=== PATIENT | female | born 1945 | race Caucasian/White ===

== ENCOUNTER 2017-11-17 09:29 | Inpatient (IN) | payer OTHER ==
[~2017-11-17] VITALS: Ht 162.6 cm; Wt 65.8 kg
--- NOTE | 2017-11-17 09:30 | NUR ---
BIB RA 61 FROM HOME,GENERALIZED WEAKNESS,BLOOD SUGAR HGIH AND HH=111/100. PT AAOX3. MD AT FOR EVAL. SAFETY AND COMFORT MEASURES PROVIDED. WILL MONITOR.
--- NOTE | 2017-11-17 09:57 | NUR ---
IV ACCESS STARTED. BLOOD AND CULTURES DRAWN FOR LABS. MEDICATED ORDERED. PT UNABLE TO GIVE URINE SAMPLE AT THIS TIME.
[2017-11-17 09:59] LABS: BASOPHILS # (AUTO) 0.4 /CMM (0.0-0.2); BASOPHILS % (AUTO) 3.8 % (0.0-2.0); EOSINOPHILS % (AUTO) 0.1 % (0.0-6.0); HEMATOCRIT 41 % (33-45); HEMOGLOBIN 13.9 g/dL (11.5-14.8); LYMPHOCYTES # (AUTO) 0.7 /CMM (0.8-4.8); LYMPHOCYTES % (AUTO) 6.4 % (20.0-44.0); MEAN CORPUSCULAR HEMOGLOBIN 30 PG (26.0-33.0); MEAN CORPUSCULAR HGB CONC 34 g/dl (31.0-36.0); MEAN CORPUSCULAR VOLUME 87 fL (82-100); MONOCYTES # (AUTO) 0.8 /CMM (0.1-1.30); MONOCYTES % (AUTO) 7.6 % (2.0-12.0); NEUTROPHILS # (AUTO) 8.4 /CMM (1.8-8.9); NEUTROPHILS % (AUTO) 82.1 % (43.0-81.0); PLATELET COUNT (AUTO) 207 /CMM (150-450); RDW COEFFICIENT OF VARIATION 12.6 (11.5-15.0); WHITE BLOOD COUNT (AUTO) 10.3 K/uL (4.3-11.0)
[2017-11-17] MEDS ORDERED: IV NS 0.9% 1,000 ML BAG IV ONE ×2 (10:00→10:30)
[2017-11-17 10:11] LABS: INR 0.87 (0.85-1.15)
--- NOTE | 2017-11-17 10:14 | NUR ---
LENNOX AT BS.
[2017-11-17 10:20] LABS: TROPONIN I < 0.017 ng/mL (0.00-0.056)
[2017-11-17 10:24] LABS: ALANINE AMINOTRANSFERASE 14 U/L (12-78); ALBUMIN 3.4 g/dL (3.4-5.0); ALKALINE PHOSPHATASE 101 U/L (46-116); ASPARTATE AMINOTRANSFERASE 10 U/L (15-37); BILIRUBIN,DIRECT 0.2 mg/dL (0.0-0.2); BILIRUBIN,TOTAL 0.9 mg/dL (0.2-1.0); CALCIUM, SERUM 9.7 mg/dL (8.5-10.1); CARBON DIOXIDE 22 mmol/L (21-32); CHLORIDE 96 mmol/L (98-107); CREATININE 2.1 mg/dL (0.6-1.3); POTASSIUM 4.7 mmol/L (3.5-5.1); SODIUM SERUM 136 mmol/L (136-145); UREA NITROGEN, BLOOD 64 mg/dL (7-18)
[2017-11-17 10:26] LABS: GLUCOSE 533 mg/dL (74-106)
[2017-11-17] MEDS ORDERED: INSULIN REGULAR, HUMAN 100 UNIT/ML 10 ML VIAL SQ ONE (10:30)
--- NOTE | 2017-11-17 10:37 | NUR ---
SMILEY ALLAN PAGED FOR ADMISSION
[2017-11-17] MEDS ORDERED: INSULIN REGULAR, HUMAN 100 UNIT/ML 10 ML VIAL ONE (10:39)
--- NOTE | 2017-11-17 10:40 | NUR ---
URINE SAMPLE OBTAINED, PT NOTED SOILED, CLEANED. KEPT COMFORTABLE.
[2017-11-17] MEDS ORDERED: HYDR25TA4 PO (10:41)
[2017-11-17] MEDS ORDERED: LOSA25TA13 PO (10:41)
[2017-11-17] MEDS ORDERED: INSU100V7 SQ (10:41)
[2017-11-17] MEDS ORDERED: OMEP40CA37 PO (10:41)
[2017-11-17] MEDS ORDERED: AMLO10TA2 PO (10:41)
[2017-11-17] MEDS ORDERED: BLOO-668 IN (10:41)
[2017-11-17] MEDS ORDERED: ATOR10TA PO (10:41)
[2017-11-17] MEDS ORDERED: INSU100V11 SQ (10:41)
[2017-11-17 10:52] LABS: APPEARANCE,URINE Slightly Cloudy (CLEAR); BILIRUBIN,URINE Negative (NEGATIVE); BLOOD, URINE Moderate Ery/uL (NEGATIVE); COLOR,URINE Yellow (YELLOW); KETONES,URINE 40 (NEGATIVE); LEUKOCYTE ESTERASE ,URINE Negative (NEGATIVE); NITRITE, URINE Negative (NEGATIVE); PROTEIN,URINE >=300 mg/dl (NEGATIVE); UGLUCOSE 500 MG/DL mg/dL (NEGATIVE); UROBILINOGEN,URINE 0.2 EU/dL (0.2)
--- NOTE | 2017-11-17 10:55 | NUR ---
PANEL ON-CALL PAGED
[2017-11-17 11:15] LABS: BACTERIA,URINE Few /HPF (None Seen); URINE AMORPHOUS URATE Few /HPF (None Seen)
[2017-11-17] MEDS ORDERED: IV NS 0.9% 1,000 ML IV PRN (11:29)
[2017-11-17] MEDS ORDERED: HYDROCODONE/APAP 5/325MG 1 EACH TABLET PO PRN (11:30)
[2017-11-17] MEDS ORDERED: DEXTROSE 50%-WATER 50 ML DISP.SYRIN IV PRN (11:30)
[2017-11-17] MEDS ORDERED: *INSULIN REGULAR(HUMULIN R)HUM 100 UNIT/ML VIAL SQ PRN (11:30)
[2017-11-17] MEDS ORDERED: Z GUARD REMEDY 2 OZ OINT TP PRN (11:30)
[2017-11-17] MEDS ORDERED: MAG HYDROX/AL HYDROX/SIMETH 30 ML UDC PO PRN (11:30)
[2017-11-17] MEDS ORDERED: ONDANSETRON HCL/PF 4 MG/2 ML VIAL IVP PRN (11:30)
[2017-11-17] MEDS ORDERED: HYDROCODONE/APAP 10/325MG 1 EA TABLET PO PRN (11:30)
[2017-11-17] MEDS ORDERED: MAGNESIUM HYDROXIDE 30 ML UDC PO PRN (11:30)
[2017-11-17] MEDS ORDERED: ACETAMINOPHEN 325 MG TABLET PO PRN (11:30)
--- NOTE | 2017-11-17 11:41 | NUR ---
CALLED DR LEE, ON THE PHONE WITH DR FERNANDES.
--- NOTE | 2017-11-17 11:51 | NUR ---
CALLED NURSING SUP REQUESTING A BED.
--- NOTE | 2017-11-17 12:05 | NUR ---
PT TAKEN TO CT.
--- NOTE | 2017-11-17 14:01 | NUR ---
REPORT GIVEN TO TUNG COX FOR TELE 104.
[2017-11-17 14:30] VITALS: BP 187/90
--- NOTE | 2017-11-17 14:30 | NUR ---
RN INITIAL NOTE PATIENT ARRIVED FROM EMERGENCY ROOM FOR WEAKNESS AND LEFT ANKLE FRACTURE. PATIENT BROUGHT IN BED, ASSISTED BY NURSE IN BED, RESTING COMFORTABLY, INSTRUCTED MACHINE CLOTH MEASURER LIGHT USE AND SAFETY UPON ARRIVAL. BLOOD PRESSURE IS ELEVATED CALL TO PROVIDER FOR FURTHER INSTRUCTIONS, NO S/SX OF CARDIAC OR RESPIRATORY DISTRESS. PATIENT SPEECH CLEAR, ABLE TO MAKE NEEDS KNOWN, AOX3, REPORTS PAIN IN LEFT LEG IS MILD, TO BE EVALUATED BY ORTHO. PATIENT HAS LEFT AC IN PLACE FLUSHING WELL, NO S/SX OF INFILTRATION. GLUCOSE WNL, NO INSULIN COVERAGE PER MD ORDER. PATIENT SAFETY MAINTAINED BED LOCKED AND IN LOW POSITION, CALL LIGHT WITHIN REACH. WILL CONTINUE TO MONITOR AND ASSESS NEEDS.
[2017-11-17] MEDS: BLOOD SUGAR DIAGNOSTIC 1 EACH STRIP VI SCH ×3 (14:53→22:22)
[2017-11-17] MEDS ORDERED: CLONIDINE HCL 0.1 MG TABLET PO PRN (17:30)
[2017-11-17] MEDS ORDERED: CEFTRIAXONE 1 G in IV NS 0.9% 50 ML IV SCH (18:00)
[2017-11-17] MEDS ORDERED: ATORVASTATIN 10 MG TABLET PO SCH (18:00)
[2017-11-17] MEDS: HEPARIN SODIUM, PORCINE 5000 UNITS/1 ML VIAL SQ SCH (18:36)
[2017-11-17] MEDS: INSULIN REGULAR, HUMAN 100 UNIT/ML 3 ML VIAL SQ PRN (18:38)
--- NOTE | 2017-11-17 19:00 | NUR ---
CARTON STAMPER CLOSING NOTE PATIENT RESTING COMFORTABLY IN BED ADMITTED TODAY S/P FALL AND LEFT ANKLE FRACTURE. PATIENT IS CALM IN BED NO SURGERY SEEN BY ORTHO HAS SPLINT IN PLACE ON LEFT LEG. PATIENT REPORTS LOW PAIN. BLOOD PRESSURE ELEVATED GIVEN PRN CATAPRESS DENIES ANY CARDIAC OR RESPIRATORY DISTRESS, PROVIDED TEACHINGS ON S/SX TO REPORT. GLUCOSE CHECKED PRIOR TO DINNER ELEVATED COVERED WITH SLIDING SCALE INSULIN. DENIES ANY S/SX OF HYPER/HYPOGLYCEMIA. ON IV ANTIBIOTIC ROCEPHIN, L AC FLUSHING WELL, NO S/SX OF INFILTRATION. RISK FOR FALLS DUE TO UNSTEADY GAIT. SAFETY MAINTAINED AT ALL TIMES, BED IN LOCKED AND LOW POSITION, NO VOICED CONCERNS. WILL REPORT TO PM NURSE FOR JOSE.
--- NOTE | 2017-11-17 19:15 | NUR ---
RN OPENING NOTES: RECEIVED PATIENT ON BED AWAKE AND ALERT; ON ROOM AIR NOT IN APPARENT DISTRESS. SR ON THE MONITOR HR AT 90'S. IV ACCESS INTACT ON LAC G20. IVF INFUSING ORDERED. WITH COMPLAINTS OF PAIN RATED 2/10. TO MONITOR FOR INCREASE IN PAIN SCALE. LEFT LEG ON SPLINT, ENSURED NON WEIGHT BEARING AND ELEVATED THIS LEG. SAFETY MEASURES ENSURED AT ALL TIMES. CALL LIGHT IN REACH. CONTINUOUSLY MONITORED.
[2017-11-17 20:00] VITALS: BP 156/73
--- NOTE | 2017-11-17 20:30 | NUR ---
RN NOTES: PRN PAIN MEDS GIVEN FOR PAIN RATED 7/10 OVER LEFT LEG. TO MONITOR FOR RELIEF OF PAIN AND EFFECTIVENESS OF MED. 2230 DUE MEDS GIVEN. PATIENT ASLEEP BUT AROUSABLE.
[2017-11-17] MEDS: TRAMADOL HCL 50 MG TABLET PO PRN (20:40)
[2017-11-17] MEDS ORDERED: INSULIN GLARGINE, 100 UNIT/ML CARTRIDGE SQ SCH ×2 (22:00)
[2017-11-18] VITALS: BP 126/57
--- NOTE | 2017-11-18 | NUR ---
RN NOTES: TRANSFER OF CARE REPORT GIVEN TO NEVIN COX. PATIENT NOT IN DISTRESS AT THIS TIME.
[2017-11-18 04:00] VITALS: BP 142/77
[2017-11-18 06:30] LABS: BASOPHILS % (AUTO) 0.6 % (0.0-2.0); EOSINOPHILS # (AUTO) 0.1 /CMM (0.0-0.7); HEMATOCRIT 35 % (33-45); HEMOGLOBIN 11.8 g/dL (11.5-14.8); LYMPHOCYTES # (AUTO) 1.1 /CMM (0.8-4.8); LYMPHOCYTES % (AUTO) 15.8 % (20.0-44.0); MEAN CORPUSCULAR HEMOGLOBIN 30 PG (26.0-33.0); MEAN CORPUSCULAR HGB CONC 34 g/dl (31.0-36.0); MEAN CORPUSCULAR VOLUME 89 fL (82-100); MONOCYTES # (AUTO) 0.7 /CMM (0.1-1.30); MONOCYTES % (AUTO) 9.4 % (2.0-12.0); NEUTROPHILS # (AUTO) 5.3 /CMM (1.8-8.9); NEUTROPHILS % (AUTO) 73.2 % (43.0-81.0); PLATELET COUNT (AUTO) 178 /CMM (150-450); RDW COEFFICIENT OF VARIATION 13.3 (11.5-15.0); RED BLOOD CELL COUNT(AUTO) 3.91 MIL/uL (4.0-5.2); WHITE BLOOD COUNT (AUTO) 7.2 K/uL (4.3-11.0)
[2017-11-18 06:45] LABS: CHOLESTEROL 251 mg/dL (<200); HDL CHOLESTEROL 47 mg/dL (40-60); LDL 173 mg/dL (0-99); THYROID STIMULATING HORMONE 0.893 uIU/mL (0.358-3.74); TRIGLYCERIDES 137 mg/dL (30-150)
[2017-11-18 06:47] LABS: CALCIUM, SERUM 8.1 mg/dL (8.5-10.1); CARBON DIOXIDE 27 mmol/L (21-32); CHLORIDE 104 mmol/L (98-107); CREATININE 1.5 mg/dL (0.6-1.3); GLUCOSE 164 mg/dL (74-106); MAGNESIUM 1.6 mg/dL (1.8-2.4); PHOSPHORUS 2.5 mg/dL (2.5-4.9); POTASSIUM 3.4 mmol/L (3.5-5.1); SODIUM SERUM 141 mmol/L (136-145); UREA NITROGEN, BLOOD 38 mg/dL (7-18)
--- NOTE | 2017-11-18 07:14 | NUR ---
NEUROLOGY MANAGER CLOSING NOTE PT REMAINED STABLE DURING SHIFT. NO ACUTE DISTRESS NOTED. ALL NEEDS ATTENDED TO PROMPTLY. CALL LIGHT WITHIN REACH. KEPT CLEAN AND DRY. WILL ENDORSE TO NEXT SHIFT FOR CONTINUITY OF CARE.
[2017-11-18] MEDS ORDERED: PANTOPRAZOLE 40 MG TABLET.DR PO SCH (07:30)
--- NOTE | 2017-11-18 07:30 | NUR ---
RN NOTES RECEIVED PATIENT IN BED ALERT, AWAKE, ORIENTEDX3 WITH BREATHING NORMAL, EVEN AND UNLABORED. NO SOB NOTED. ON ROOM AIR, SATURATING WELL. NO ACUTE DISTRESS NOTED. TELE MONITOR REVEALS SR, HR=80. IV LAC IS PATENT AND INTACT, RUNNING IVF PER ORDER. KEPT CLEAN, DRY AND COMFORTABLE. ALL NEEDS ATTENDED. SAFETY MEASURE OBSERVED. CALL LIGHT WITH IN REACH. WILL CONT TO MONITOR.
[2017-11-18 08:00] VITALS: BP 138/58
[2017-11-18] MEDS: BLOOD SUGAR DIAGNOSTIC 1 EACH STRIP VI SCH ×2 (08:15→12:21)
[2017-11-18] MEDS: HEPARIN SODIUM, PORCINE 5000 UNITS/1 ML VIAL SQ SCH (08:15)
[2017-11-18] MEDS: INSULIN REGULAR, HUMAN 100 UNIT/ML 3 ML VIAL SQ PRN ×2 (08:16→12:23)
[2017-11-18] MEDS ORDERED: LEVO500T75 PO (08:27)
[2017-11-18] MEDS ORDERED: Insulin Glargine,Hum SQ (08:27)
[2017-11-18] MEDS ORDERED: HYDR-3972 PO (08:27)
[2017-11-18] MEDS ORDERED: *INS REG SQ (08:27)
[2017-11-18] MEDS ORDERED: ATORVASTATIN 10 MG TABLET PO SCH (08:30)
[2017-11-18] MEDS ORDERED: POTASSIUM CHLORIDE 20 MEQ TAB.PRT.SR PO ONE (08:30)
[2017-11-18] MEDS ORDERED: LOSARTAN POTASSIUM 25 MG TABLET PO SCH (09:00)
[2017-11-18] MEDS ORDERED: AMLODIPINE BESYLATE 10 MG TABLET PO SCH (09:00)
[2017-11-18] MEDS ORDERED: HYDROCHLOROTHIAZIDE 25 MG TABLET PO SCH (09:00)
[2017-11-18] MEDS: Magnesium 1GM/D5W 100ML PREMIX 100 ML IV SCH ×2 (09:29→10:29)
[2017-11-18 12:00] VITALS: BP 140/50
[2017-11-18] MEDS: TRAMADOL HCL 50 MG TABLET PO PRN (12:18)
--- NOTE | 2017-11-18 15:40 | NUR ---
RN NOTES RECEIVED CALL FROM SAMUEL GRECO OF DR BRAGG. PER SAMUEL CAMARGO TO HAVE LEFT TOE TOUCH WEIGHT BEARING. ORDER NOTED AND CARRIED OUT.
[2017-11-18 16:00] VITALS: BP 152/69
--- NOTE | 2017-11-18 16:30 | NUR ---
RN NOTES PATIENT DISCHARGED IN STABLE CONDITION WITH BREATHING NORMAL, EVEN AND UNLABORED. NO SOB NOTED. NO ACUTE DISTRESS NOTED. DISCHARGE INSTRUCTION GIVEN WITH FEEDBACK. UNDERSTOOD WELL. IV HEPLOCK REMOVED. REPORT CALLED AND GIVEN TO YAYA [facility] IN [facility]. DISCHARGE INSTRUCTION GIVEN WITH FEEDBACK. PATIENT LEFT VIA AMBULANCE IN STABLE CONDITION.
== END 2017-11-18 16:30 | DRG 563 ==
LOC: ER 09:31 → TELE1 13:49
PROVIDERS: ADMIT Internal Medicine; ATTEND Internal Medicine
DX: S82.832A Other fracture of upper and lower end of left fibula, initial encounter for closed fracture (principal); N17.9 Acute kidney failure, unspecified; E11.65 Type 2 diabetes mellitus with hyperglycemia; N39.0 Urinary tract infection, site not specified; E86.0 Dehydration; W07.XXXA Fall from chair, initial encounter; Z91.14 Patient's other noncompliance with medication regimen; I10 Essential (primary) hypertension; E78.5 Hyperlipidemia, unspecified; Z79.4 Long term (current) use of insulin; R29.6 Repeated falls; R53.1 Weakness; Y93.9 Activity, unspecified; Y92.000 Kitchen of unspecified non-institutional (private) residence as the place of occurrence of the external cause
CPT/HCPCS: 36415; 70450-TC; 71045-TC; 73502; 73600-TC; 80048-TC; 80061-TC; 80076-TC; 81000-TC; 82962-TC; 83605-TC; 83735-TC; 84100-TC; 84443-TC; 84484-TC; 85025-TC; 85730-TC; 87040-TC; 87081-TC; 87086-TC; 93971-TC; A4216; A4606; J0696; J1644; J1815; J3475; J3480; J3490; J7030; Z7610

== ENCOUNTER 2018-01-23 20:07 | Inpatient (IN) | payer OTHER ==
[~2018-01-23] VITALS: Ht 175.3 cm; Wt 59.0 kg
[~2018-01-23 20:07] MED LIST: *INS REG SQ; AMLO10TA6 PO; ATOR10TA PO; HYDR-3972 PO; Insulin Glargine,Hum SQ; LEVO500T75 PO; LOSA25TA13 PO; OMEP40CA37 PO
[2018-01-23 20:46] LABS: BASOPHILS % (AUTO) 0.7 % (0.0-2.0); EOSINOPHILS % (AUTO) 1.2 % (0.0-6.0); HEMATOCRIT 38 % (33-45); HEMOGLOBIN 12.8 g/dL (11.5-14.8); LYMPHOCYTES # (AUTO) 1.3 /CMM (0.8-4.8); LYMPHOCYTES % (AUTO) 20.5 % (20.0-44.0); MEAN CORPUSCULAR HGB CONC 34 g/dl (31.0-36.0); MEAN CORPUSCULAR VOLUME 86 fL (82-100); MONOCYTES # (AUTO) 0.5 /CMM (0.1-1.30); MONOCYTES % (AUTO) 6.9 % (2.0-12.0); NEUTROPHILS # (AUTO) 4.7 /CMM (1.8-8.9); NEUTROPHILS % (AUTO) 70.7 % (43.0-81.0); PLATELET COUNT (AUTO) 233 /CMM (150-450); RDW COEFFICIENT OF VARIATION 13.8 (11.5-15.0); WHITE BLOOD COUNT (AUTO) 6.6 K/uL (4.3-11.0)
[2018-01-23] MEDS ORDERED: IV NS 0.9% 500 ML BAG IV ONE (21:00)
[2018-01-23 21:03] LABS: ALANINE AMINOTRANSFERASE 74 U/L (12-78); ALBUMIN 3.4 g/dL (3.4-5.0); ALKALINE PHOSPHATASE 79 U/L (46-116); ASPARTATE AMINOTRANSFERASE 40 U/L (15-37); BILIRUBIN,DIRECT 0.1 mg/dL (0.0-0.2); BILIRUBIN,TOTAL 0.4 mg/dL (0.2-1.0); CALCIUM, SERUM 9.9 mg/dL (8.5-10.1); CARBON DIOXIDE 27 mmol/L (21-32); CHLORIDE 104 mmol/L (98-107); CREATININE 2.3 mg/dL (0.6-1.3); GLUCOSE 143 mg/dL (74-106); SODIUM SERUM 139 mmol/L (136-145); UREA NITROGEN, BLOOD 42 mg/dL (7-18)
[2018-01-23 21:05] LABS: TROPONIN I < 0.017 ng/mL (0.00-0.056)
[2018-01-23 21:38] LABS: INR 0.9 (0.85-1.15)
[2018-01-24] VITALS (7 sets, daily range): BP systolic 130–156; BP diastolic 75–82
[2018-01-24] MEDS ORDERED: MAG HYDROX/AL HYDROX/SIMETH 30 ML UDC ONE (01:27)
[2018-01-24] MEDS ORDERED: LIDOCAINE VISCOUS 2% UD 15 ML UDC ONE (01:27)
[2018-01-24] MEDS ORDERED: LIDOCAINE VISCOUS 2% UD 15 ML UDC MM ONE (01:30)
[2018-01-24] MEDS ORDERED: MAG HYDROX/AL HYDROX/SIMETH 30 ML UDC PO ONE (01:30)
[2018-01-24] MEDS ORDERED: DEXTROSE 50%-WATER 50 ML DISP.SYRIN IV PRN (03:00)
[2018-01-24] MEDS ORDERED: IV 1/2NS 1000 ML 1,000 ML IV PRN (03:00)
[2018-01-24] MEDS ORDERED: *INSULIN REGULAR(HUMULIN R)HUM 100 UNIT/ML VIAL SQ PRN (03:00)
[2018-01-24 06:30] LABS: APPEARANCE,URINE SL CLOUDY (CLEAR); BILIRUBIN,URINE NEGATIVE (NEGATIVE); BLOOD, URINE TRACE-INTA Ery/uL (NEGATIVE); COLOR,URINE YELLOW (YELLOW); KETONES,URINE NEGATIVE (NEGATIVE); LEUKOCYTE ESTERASE ,URINE 2+ (NEGATIVE); NITRITE, URINE NEGATIVE (NEGATIVE); PH,URINE 5.5 (5.0-8.0); PROTEIN,URINE 2+ mg/dl (NEGATIVE); UGLUCOSE NEGATIVE (NEGATIVE); UROBILINOGEN,URINE 0.2 EU/dL (0.2)
[2018-01-24 06:48] LABS: BASOPHILS % (AUTO) 0.7 % (0.0-2.0); HEMATOCRIT 33 % (33-45); HEMOGLOBIN 11.2 g/dL (11.5-14.8); LYMPHOCYTES # (AUTO) 1.3 /CMM (0.8-4.8); LYMPHOCYTES % (AUTO) 23.4 % (20.0-44.0); MEAN CORPUSCULAR HGB CONC 34 g/dl (31.0-36.0); MEAN CORPUSCULAR VOLUME 87 fL (82-100); MONOCYTES # (AUTO) 0.6 /CMM (0.1-1.30); MONOCYTES % (AUTO) 10.5 % (2.0-12.0); NEUTROPHILS # (AUTO) 3.6 /CMM (1.8-8.9); NEUTROPHILS % (AUTO) 63.4 % (43.0-81.0); PLATELET COUNT (AUTO) 193 /CMM (150-450); RDW COEFFICIENT OF VARIATION 14.6 (11.5-15.0); RED BLOOD CELL COUNT(AUTO) 3.81 MIL/uL (4.0-5.2); WHITE BLOOD COUNT (AUTO) 5.6 K/uL (4.3-11.0)
[2018-01-24] MEDS: BLOOD SUGAR DIAGNOSTIC 1 EACH STRIP VI SCH ×4 (06:55→21:52)
[2018-01-24] MEDS: INSULIN REGULAR, HUMAN 100 UNIT/ML 3 ML VIAL SQ PRN (06:59)
[2018-01-24] MEDS ORDERED: ONDANSETRON HCL/PF 4 MG/2 ML VIAL IV PRN (07:00)
[2018-01-24 07:08] LABS: CARBON DIOXIDE 26 mmol/L (21-32); CHLORIDE 106 mmol/L (98-107); CREATININE 1.6 mg/dL (0.6-1.3); GLUCOSE 134 mg/dL (74-106); POTASSIUM 4.1 mmol/L (3.5-5.1); SODIUM SERUM 141 mmol/L (136-145); UREA NITROGEN, BLOOD 36 mg/dL (7-18)
[2018-01-24 07:32] LABS: BACTERIA,URINE Few /HPF (None Seen); SQUAMOUS EPITHELIAL CELL,UR Few /HPF (None Seen)
[2018-01-24 07:33] LABS: HYALINE CASTS, URINE Rare /LPF (None Seen)
[2018-01-24] MEDS: AMLODIPINE BESYLATE 10 MG TABLET PO SCH (09:10)
[2018-01-24] MEDS: LEVOFLOXACIN (250MG) 250 MG TABLET PO SCH (09:10)
[2018-01-24] MEDS: LOSARTAN POTASSIUM 25 MG TABLET PO SCH (09:11)
[2018-01-24] MEDS ORDERED: ATORVASTATIN 10 MG TABLET PO SCH (22:00)
[2018-01-25] MEDS: BLOOD SUGAR DIAGNOSTIC 1 EACH STRIP VI SCH ×3 (05:32→17:54)
[2018-01-25] MEDS: INSULIN REGULAR, HUMAN 100 UNIT/ML 3 ML VIAL SQ PRN ×3 (05:33→17:54)
[2018-01-25] MEDS ORDERED: PANTOPRAZOLE 40 MG TABLET.DR PO SCH (07:30)
[2018-01-25 08:00] VITALS: BP 181/90
[2018-01-25] MEDS: LOSARTAN POTASSIUM 25 MG TABLET PO SCH (08:27)
[2018-01-25] MEDS: LEVOFLOXACIN (250MG) 250 MG TABLET PO SCH (08:27)
[2018-01-25] MEDS: AMLODIPINE BESYLATE 10 MG TABLET PO SCH (08:28)
[2018-01-25] MEDS ORDERED: LOSA100T15 PO (08:47)
[2018-01-25] MEDS ORDERED: LOSARTAN POTASSIUM 50 MG TABLET PO SCH (09:00)
[2018-01-25 16:00] VITALS: BP 150/77
== END 2018-01-25 18:40 | DRG 683 ==
LOC: ER 20:08 → MEDSG2 01-24 02:01
PROVIDERS: ADMIT Internal Medicine; ATTEND Internal Medicine
DX: N17.9 Acute kidney failure, unspecified (principal); N39.0 Urinary tract infection, site not specified; E11.9 Type 2 diabetes mellitus without complications; I12.9 Hypertensive chronic kidney disease with stage 1 through stage 4 chronic kidney disease, or unspecified chronic kidney disease; N18.9 Chronic kidney disease, unspecified; Z79.4 Long term (current) use of insulin; E78.5 Hyperlipidemia, unspecified; R29.6 Repeated falls
CPT/HCPCS: 36415; 71045-TC; 80048-TC; 80076-TC; 81000-TC; 82962-TC; 84484-TC; 85025-TC; 85730-TC; 87081-TC; 87086-TC; 97116-TC; A4606; J1815; J3490; J7040; Z7610

== ENCOUNTER 2019-03-15 01:39 | Inpatient (IN) | payer BC, MEDICAID, MEDICARE, OTHER ==
[~2019-03-15] VITALS: Ht 160 cm; Wt 63.5 kg
[~2019-03-15 01:39] MED LIST changes: -AMLO10TA6 PO; +AMLO10TA7 PO; -LEVO500T75 PO; +LOSA100T31 PO; -LOSA25TA13 PO
--- NOTE | 2019-03-15 01:56 | NUR ---
TECH AT BEDSIDE FOR EKG
[2019-03-15] MEDS ORDERED: PIPERACILLIN /TAZOBACTAM 3.375 G in IV D5W 50 ML IV ONE (02:00)
[2019-03-15] MEDS ORDERED: VANCOMYCIN 1 GM in IV D5W 250 ML IV ONE ×2 (02:00→06:00)
[2019-03-15] MEDS ORDERED: IV NS 0.9% 1,000 ML BAG IV ONE ×2 (02:00→06:00)
--- NOTE | 2019-03-15 02:01 | NUR ---
RT AT BEDSIDE ABGs
--- NOTE | 2019-03-15 02:10 | NUR ---
BLOOD DRAWN AND GIVEN TO LAB
[2019-03-15 02:11] LABS: ABG OXYGEN SATURATION 97.8 % (92.0-98.5); ABG PCO2 32.4 mmHg (35.0-45.0); ABG PH 7.439 (7.350-7.450); ABG PO2 128.2 mmHg (75.0-100.0); AaDO2 552.4 mmHg; COHb 0.3 % (0.5-1.5); MetHb 0.5 % (0.0-1.5); SITE, ABG Left Radial; VENT MODE, BG NRB
--- NOTE | 2019-03-15 02:18 | NUR ---
RADIOLOGY AT BEDSIDE FOR XRAY
[2019-03-15 02:29] LABS: BASOPHILS % (AUTO) 0.1 % (0.0-2.0); HEMATOCRIT 34 % (33-45); HEMOGLOBIN 11.1 g/dL (11.5-14.8); LYMPHOCYTES # (AUTO) 0.6 /CMM (0.8-4.8); LYMPHOCYTES % (AUTO) 2.6 % (20.0-44.0); MEAN CORPUSCULAR HGB CONC 33 g/dl (31.0-36.0); MEAN CORPUSCULAR VOLUME 91 fL (82-100); MONOCYTES # (AUTO) 1.5 /CMM (0.1-1.30); MONOCYTES % (AUTO) 6.9 % (2.0-12.0); NEUTROPHILS # (AUTO) 19.5 /CMM (1.8-8.9); NEUTROPHILS % (AUTO) 90.4 % (43.0-81.0); PLATELET COUNT (AUTO) 363 /CMM (150-450); RED BLOOD CELL COUNT(AUTO) 3.72 MIL/uL (4.0-5.2); WHITE BLOOD COUNT (AUTO) 21.6 K/uL (4.3-11.0)
[2019-03-15 02:32] LABS: APPEARANCE,URINE Cloudy (CLEAR); BILIRUBIN,URINE MODERATE (NEGATIVE); BLOOD, URINE Small Ery/uL (NEGATIVE); COLOR,URINE Yellow (YELLOW); KETONES,URINE Negative (NEGATIVE); LEUKOCYTE ESTERASE ,URINE Small (NEGATIVE); NITRITE, URINE Negative (NEGATIVE); PROTEIN,URINE 100 mg/dl (NEGATIVE); UGLUCOSE Negative (NEGATIVE); UROBILINOGEN,URINE 0.2 EU/dL (0.2)
[2019-03-15] MEDS ORDERED: VANCOMYCIN 1 GM VIAL ONE (02:41)
[2019-03-15] MEDS ORDERED: PIPERACILLIN /TAZOBACTAM 3.375 G VIAL IV ONE (02:41)
[2019-03-15 02:44] LABS: ALANINE AMINOTRANSFERASE 40 U/L (12-78); ALBUMIN 2.1 g/dL (3.4-5.0); ALKALINE PHOSPHATASE 71 U/L (46-116); ASPARTATE AMINOTRANSFERASE 206 U/L (15-37); BILIRUBIN,DIRECT 0.1 mg/dL (0.0-0.2); BILIRUBIN,TOTAL 0.6 mg/dL (0.2-1.0); CALCIUM, SERUM 9.2 mg/dL (8.5-10.1); CARBON DIOXIDE 22 mmol/L (21-32); CHLORIDE 101 mmol/L (98-107); CREATININE 3.3 mg/dL (0.6-1.3); GLUCOSE 293 mg/dL (74-106); POTASSIUM 4.7 mmol/L (3.5-5.1); SODIUM SERUM 138 mmol/L (136-145)
[2019-03-15 02:45] LABS: UREA NITROGEN, BLOOD 88 mg/dL (7-18)
[2019-03-15 02:59] LABS: BACTERIA,URINE Moderate /HPF (None Seen); SQUAMOUS EPITHELIAL CELL,UR Moderate /HPF (None Seen); WBC,URINE TOO NUMEROUS TO COUN /HPF (0-3)
[2019-03-15] MEDS ORDERED: PIPERACILLIN /TAZOBACTAM 2.25 G in IV D5W 50 ML IV ONE (03:00)
[2019-03-15] MEDS ORDERED: PIPERACILLIN /TAZOBACTAM 2.25 G VIAL IV ONE (03:50)
--- NOTE | 2019-03-15 03:54 | NUR ---
RECEIVED ZOSYN 2.25G FROM [facility]
[2019-03-15] MEDS ORDERED: ASPIRIN 300 MG/SUPP.RECT RC ONE (04:00)
--- NOTE | 2019-03-15 04:04 | NUR ---
Patient is resting comfortably in bed with eyes closed. Easily aroused. VSS.
--- NOTE | 2019-03-15 04:05 | NUR ---
BED 115
--- NOTE | 2019-03-15 04:16 | NUR ---
150 MG ASPIRIN SUPP RECT NOT GIVEN. UNAVAILABLE IN ED, ANGELINE, AND MED SURG. AWARE.
--- NOTE | 2019-03-15 04:28 | NUR ---
REPORT GIVEN TO KENNY LUO FOR JOSE
--- NOTE | 2019-03-15 05:01 | NUR ---
PT WAS TRANSFERRED TO [facility] RM 115-1 UNDER ACLS PROTOCOL
--- NOTE | 2019-03-15 05:21 | NUR ---
TD RN NOTES RECEIVED PT ON FROM ER NURSE ON TELE MONITOR SR 78. A/O X 1, AGITATED PULLING NRB AND IV ACCESS. IV ACCESS ON R WRIST G20 PATENT AND INTACT, WITH NS RUNNING WIDE OPEN. GAMBOA CATH DRAINING YELLOW URINE. ON NRB SATURATING 88%, NO RESPIRATORY DISTRESS NOTED. SKIN ASSESSMENT DONE, NO WOUND NOTED.
--- NOTE | 2019-03-15 05:22 | NUR ---
TD RN NOTES CALLED DR ALLAN FOR ADMITTING ORDERS. UPDATED ABOUT PT CONDITION, AND OKAY FOR BILATERAL SOFT RESTRAINTS.
[2019-03-15 05:57] VITALS: BP 118/76
[2019-03-15] MEDS ORDERED: ACETAMINOPHEN 650 MG/SUPP.RECT RC PRN (06:00)
[2019-03-15] MEDS ORDERED: ONDANSETRON HCL/PF 4 MG/2 ML VIAL IVP PRN (06:00)
[2019-03-15] MEDS: IV NS 0.9% 1,000 ML IV PRN ×2 (06:12→20:27)
--- NOTE | 2019-03-15 06:13 | NUR ---
TD RN NOTES DR INFORMED REGARDING TROPONIN LEVELS, NO NEW ORDER. D/C BOLUS PER DR ORDER.
[2019-03-15 07:06] LABS: CALCIUM, SERUM 8.6 mg/dL (8.5-10.1); CARBON DIOXIDE 24 mmol/L (21-32); CHLORIDE 101 mmol/L (98-107); CREATININE 3.5 mg/dL (0.6-1.3); POTASSIUM 4.8 mmol/L (3.5-5.1); SODIUM SERUM 138 mmol/L (136-145)
[2019-03-15 07:12] LABS: ALANINE AMINOTRANSFERASE 39 U/L (12-78); ALKALINE PHOSPHATASE 68 U/L (46-116); ASPARTATE AMINOTRANSFERASE 189 U/L (15-37); BILIRUBIN,DIRECT 0.1 mg/dL (0.0-0.2); BILIRUBIN,TOTAL 0.7 mg/dL (0.2-1.0)
[2019-03-15 07:16] LABS: GLUCOSE 355 mg/dL (74-106)
[2019-03-15 07:17] LABS: UREA NITROGEN, BLOOD 84 mg/dL (7-18)
--- NOTE | 2019-03-15 07:19 | NUR ---
TD RN NOTES NO ACUTE CHANGES NOTED. NO RESPIRATORY DISTRESS NOTED. ON FACE MASK 8LPM SATURATING 96%. ENDORSE TO THE AM NURSE FOR CONTINUITY OF CARE.
--- NOTE | 2019-03-15 07:20 | NUR ---
TD RN NOTES ENDORSE TO THE AM NURSE REGARDING CRITICAL LAB RESULTS.
--- NOTE | 2019-03-15 07:42 | NUR ---
ANGELINE RN NOTE RECEIVED PATIENT IN BED , RESTING COMFORTABLY AT THIS TIME, , WITH GAMBOA CATH TO GRAVITY , WITH YELLOW COLOR , ON TELE MONITOR SR HR 67 , ON IVF ORDERED , BED IN LOWEST AND LOCKED POSITION , WITH SOFT RESTRAIN ORDERED , ON 8L OF O3 VIA SIMPLE MASK AT THIS TIME ,WILL CONT TO MONITOR CLOSELY , [id number] WILL REPORT TO MD ,ON NPO STATUS AT THIS TIME
[2019-03-15] MEDS ORDERED: FEE PK DOSING 1 MIN EA MC ONE (07:58)
[2019-03-15 08:00] VITALS: BP 134/63
[2019-03-15] MEDS: methylPREDNISolone SOD SUCC 40 MG/ML VIAL IV SCH ×3 (08:04→16:22)
[2019-03-15] MEDS: PIPERACILLIN /TAZOBACTAM 2.25 G in IV D5W 50 ML IV SCH ×2 (08:10→16:21)
[2019-03-15 08:17] VITALS: BP 134/63
--- NOTE | 2019-03-15 08:22 | NUR ---
ANGELINE RN NOTE 2D ECHO DONE ORDERED PATINR SLEEPING BUT AROUSABLE TO TACTILE AND VERBAL STIMULI, WILL CONT TO MONITOR CLOSELY
--- NOTE | 2019-03-15 09:35 | NUR ---
vic rn note seen by dr chiang and dr sylvie scott that trop 43.07 salted that will order blood thinner , also per [facility]ie [facility] on high flow o2 per rt , aware that earlier on nc 6l sat 84% Addendum: 03/15/19 at 1320 by NIGHAT LUJAN RN CORRECTION, STATED THAT WILL ORDER BLOOD THINNER MEDS
[2019-03-15] MEDS: CARVEDILOL 3.125 MG TABLET PO SCH ×2 (10:00→20:29)
[2019-03-15] MEDS ORDERED: HEPARIN SODIUM, PORCINE 5000 UNITS/1 ML VIAL IV ONE (10:00)
--- NOTE | 2019-03-15 10:00 | NUR ---
RT PLACED PT ON HFNC PER DR HILL DUE TO LOW SP02. SP02 95%, WILL CONTINUE TO MONITOR T/O SHIFT.
[2019-03-15] MEDS ORDERED: DEXTROSE 50%-WATER 50 ML DISP.SYRIN IV PRN ×3 (10:30→13:00)
[2019-03-15] MEDS ORDERED: INSULIN REGULAR, HUMAN 100 UNIT/ML 3 ML VIAL SQ PRN ×2 (10:30→11:30)
[2019-03-15] MEDS: HEPARIN INFUSION/D5W 500 ML IV PRN ×2 (10:47→10:53)
--- NOTE | 2019-03-15 10:57 | NUR ---
ANGELINE RN NOTE PER DR MUNGUIA HEPARIN DRIP STARTED ORDERED PER PROTOCOL STARTED AT 900 UNITS \HR , ON HIGH FLOW O2 SAT 95% AT THIS TIME ,WILL CONT TO MONITOR CLOSELY
[2019-03-15 12:00] VITALS: BP 103/52
[2019-03-15] MEDS ORDERED: BLOOD SUGAR DIAGNOSTIC 1 EACH STRIP IN SCH ×2 (12:00)
--- NOTE | 2019-03-15 12:00 | NUR ---
ANGELINE RN NOTE PER RT PLACED ON HIGH ARABELLA O2 AT 60 L\MIN, O2100%, SAT 97-96%, PATIENT SLEEPING BUT ABUSABLE TO TACITLY STIMULI , WILL MONITOR
--- NOTE | 2019-03-15 12:16 | NUR ---
ANGELINE RN NOTE UA COLLECTED ORDERED, US KIDNEY DONE ORDERED, KEEP CLEAN DRY
[2019-03-15 12:22] VITALS: BP 93/57
--- NOTE | 2019-03-15 13:00 | NUR ---
ANGELINE RN NOTE PER DR PRESTON STILL KEEP NPO ,NO SWALLOW EVAL YET , WILL CONT TO MONITOR CLOSELY
[2019-03-15] MEDS: INSULIN REGULAR, HUMAN 100 UNIT/ML 3 ML VIAL SQ PRN ×2 (13:14→17:38)
[2019-03-15 15:42] LABS: CREATININE, URINE 185.7 MG/DL (30.0-125.0); URINE TOTAL PROTEIN 137.3 mg/dL (0-11.9)
[2019-03-15 15:44] LABS: APPEARANCE,URINE CLOUDY (CLEAR); BILIRUBIN,URINE 1+ (NEGATIVE); BLOOD, URINE 3+ Ery/uL (NEGATIVE); COLOR,URINE YELLOW (YELLOW); KETONES,URINE NEGATIVE (NEGATIVE); LEUKOCYTE ESTERASE ,URINE 1+ (NEGATIVE); NITRITE, URINE NEGATIVE (NEGATIVE); PH,URINE 5.5 (5.0-8.0); PROTEIN,URINE 2+ mg/dl (NEGATIVE); UGLUCOSE TRACE mg/dL (NEGATIVE); UROBILINOGEN,URINE 0.2 EU/dL (0.2)
[2019-03-15 16:00] VITALS: BP_SYST 111; BP_DIAS 57; BP_DIAS 58
[2019-03-15 16:03] LABS: BACTERIA,URINE Moderate /HPF (None Seen); SQUAMOUS EPITHELIAL CELL,UR Few /HPF (None Seen)
[2019-03-15 16:04] LABS: URIC ACID CRYSTALS,URINE Moderate /HPF (None Seen)
[2019-03-15 17:00] LABS: EOSINOPHIL,URINE None Seen
--- NOTE | 2019-03-15 17:08 | NUR ---
telemarketer note stool for ob collected x1, keep clean dry , all needs attended ,cont on high flow 02 ,sat 94%, will cont to monitor
[2019-03-15] MEDS: BLOOD SUGAR DIAGNOSTIC 1 EACH STRIP IN SCH (17:11)
--- NOTE | 2019-03-15 17:56 | NUR ---
ANGELINE RN NOTE PER DR PRESTON MAY INSERT N G TUBE FOR ADMINISTER MEDS , PLACED ON ON RT NARE VERIFICATION BY AUSCULTATION OF AIR DONE , ORDERED CHEST X RAY TO CONFIRM PLACEMENT, WILL F\U
--- NOTE | 2019-03-15 18:06 | NUR ---
ANGELINE RN NOTE PTT RESULT STILL PENDING ,WILL F\U
--- NOTE | 2019-03-15 18:12 | NUR ---
RECOVERY OPERATOR HELPER NOTE PATIENT MORE ALERT NOW SPEAKS HUNGARIAN AND IRISH , BECOME MORE RESTLESS AND NOT COOPERATIVE, UNABLE TO REMOVE SOFT RESTRAIN AT THIS TIME AT RISK TO REMOVE ALL LINES ,WILL MONITOR
--- NOTE | 2019-03-15 18:37 | NUR ---
ANGELINE RN NOTE PTT 61.1 , PER HOSPITAL PROTOCOL CONT RATE 900 UNITS \HR=18 ML PER HOUR ,
[2019-03-15 18:42] LABS: OCCULT BLOOD STOOL NEGATIVE (NEGATIVE)
--- NOTE | 2019-03-15 18:56 | NUR ---
GUIDE TRAVEL NOTE PER CHEST X RAY RESULT OK TO USE NG TUBE , CONT ON IVF ORDERED AND HEPARIN DRIP ,CONT ON HIGH FLOW O2 PER RT ,SAT 94% ,WILL MONITOR
--- NOTE | 2019-03-15 19:51 | NUR ---
RT PT REC'D ON CHARTED HI-FLOW SETTINGS. PT IS AWAKE AND ABLE TO FOLLOW DIRECTION. NO SOB NOTED AT THIS TIME. WILL CONTINUE TO MONITOR T/O SHIFT. Addendum: 03/15/19 at 1951 by CLAIRE SAAVEDRA RT Amended: Links added.
[2019-03-15] MEDS: MEROPENEM 500 MG in IV NS 0.9% 50 ML IV SCH (20:27)
[2019-03-15] MEDS ORDERED: Z GUARD REMEDY 2 OZ OINT TP SCH (21:00)
[2019-03-15] MEDS: ATORVASTATIN 40 MG TABLET PO SCH (22:34)
[2019-03-16] MEDS: INSULIN REGULAR, HUMAN 100 UNIT/ML 3 ML VIAL SQ PRN ×5 (00:11→22:38)
[2019-03-16] MEDS: BLOOD SUGAR DIAGNOSTIC 1 EACH STRIP IN SCH ×5 (00:12→22:39)
[2019-03-16 04:00] VITALS: BP 111/58
[2019-03-16 06:48] LABS: BASOPHILS # (AUTO) 0.1 /CMM (0.0-0.2); BASOPHILS % (AUTO) 0.6 % (0.0-2.0); HEMATOCRIT 33 % (33-45); HEMOGLOBIN 10.7 g/dL (11.5-14.8); LYMPHOCYTES # (AUTO) 0.4 /CMM (0.8-4.8); LYMPHOCYTES % (AUTO) 2.5 % (20.0-44.0); MEAN CORPUSCULAR HGB CONC 33 g/dl (31.0-36.0); MEAN CORPUSCULAR VOLUME 91 fL (82-100); MONOCYTES # (AUTO) 0.5 /CMM (0.1-1.30); MONOCYTES % (AUTO) 3.3 % (2.0-12.0); NEUTROPHILS # (AUTO) 15.2 /CMM (1.8-8.9); NEUTROPHILS % (AUTO) 93.6 % (43.0-81.0); PLATELET COUNT (AUTO) 305 /CMM (150-450); RED BLOOD CELL COUNT(AUTO) 3.58 MIL/uL (4.0-5.2); WHITE BLOOD COUNT (AUTO) 16.3 K/uL (4.3-11.0)
[2019-03-16 07:17] LABS: ALANINE AMINOTRANSFERASE 33 U/L (12-78); ALBUMIN 1.7 g/dL (3.4-5.0); ALKALINE PHOSPHATASE 58 U/L (46-116); ASPARTATE AMINOTRANSFERASE 97 U/L (15-37); BILIRUBIN,TOTAL 0.5 mg/dL (0.2-1.0); CALCIUM, SERUM 8.3 mg/dL (8.5-10.1); CARBON DIOXIDE 24 mmol/L (21-32); CHLORIDE 105 mmol/L (98-107); CREATININE 2.7 mg/dL (0.6-1.3); GLUCOSE 234 mg/dL (74-106); MAGNESIUM 2.1 mg/dL (1.8-2.4); PHOSPHORUS 3.7 mg/dL (2.5-4.9); POTASSIUM 3.9 mmol/L (3.5-5.1); SODIUM SERUM 141 mmol/L (136-145); TOTAL PROTEIN, SERUM 6.5 g/dL (6.4-8.2)
[2019-03-16 07:22] LABS: UREA NITROGEN, BLOOD 95 mg/dL (7-18)
--- NOTE | 2019-03-16 07:30 | NUR ---
RN NOTE RECEIVED PATIENT IN BED, ASLEEP BUT AWAKEN BY VERBAL STIMULI, SOFT SPOKEN, ORIENTED X1-2, PATIENT ON HIGH FLOW OXYGEN, AT 60LPM, SATING AT 93%, WITH NGT, INTACT AND IN PLACE, AUSCULTATED FOR PLACEMENT CONFIRMATION. SINUS RHYTHM ON THE MONITOR WITH HR ON THE 60'S. APPEARS COMFORTABLE IN BED. PATEINT WITH BILATERAL SOFT RESTRAINTS, REMOVED AND REPLACED TO CHECK SKIN INTEGRITY, PULSES PALPABLE, NO SKIN ISSUES NOTED AT THIS TIME. IV ACCESS ON THE L HAND G [address], WITH ONGOING HEPARIN DRIP AT 900UNITS/ML, AND IV ACCESS G 24 ON THE R WRIST, IN PLACE AND PATENT WITH ONGOING IVF NS AT 80CC/HR. WITH GAMBOA CATH DRAINING TO GRAVITY TO YELLOW COLOR. HOB KEPT ELEVATED. SAFETY MEASURES OBSERVED AND MAINTAINED. SRX2, BED IN LOWEST AND LOCKED POSITION. CALL LIGHT PLACED WITHIN REACH, WILL CONTINUE TO MONITOR AND AND ANTICIPATE NEEDS
[2019-03-16 08:00] VITALS: BP 94/50
[2019-03-16] MEDS: MEROPENEM 500 MG in IV NS 0.9% 50 ML IV SCH ×2 (08:28→20:44)
[2019-03-16] MEDS: CARVEDILOL 3.125 MG TABLET PO SCH ×2 (09:00→20:43)
--- NOTE | 2019-03-16 09:00 | NUR ---
RN NOTES PATIENT ABLE TO PULL OUT NGT DESPITE RESTRAINTS. DR. PRESTON AT THE UNIT AT THIS TIME, PER MD BARBER TO DISCONTINUE NGT AND DO SWALLOW EVAL ON THE PATIENT. ORDER NOTED AND CARRIED OUT Addendum: 03/16/19 at 1837 by LAUREN BRADSHAW RN NURSING SWALLOW TREAT DONE ON THE PATIENT PATIENT ABLE TO SWALLOW PUREED (APPLE SAUCE), WHOLE PILL AND WATER EFFICIENTLY. INFORMED AND OBTAINED ORDER FOR DIET
[2019-03-16 09:07] LABS: CHOLESTEROL 157 mg/dL (<200); CREATINE KINASE, TOTAL 428 U/L (26-192); FERRITIN 718 ng/mL (8-388); HDL CHOLESTEROL 48 mg/dL (40-60); LDL 97 mg/dL (0-99); THYROID STIMULATING HORMONE 0.333 uIU/mL (0.358-3.74); TRIGLYCERIDES 74 mg/dL (30-150)
[2019-03-16] MEDS: ASPIRIN EC 325 MG TABLET.DR PO SCH (09:24)
[2019-03-16] MEDS: methylPREDNISolone SOD SUCC 40 MG/ML VIAL IV SCH ×3 (09:25→16:41)
[2019-03-16 10:20] LABS: IRON, SERUM 27 ug/dl (50-175); TOTAL IRON BINDING CAPACITY 119 ug/dl (250-450)
[2019-03-16] MEDS: ACETAMINOPHEN 325 MG TABLET PO PRN (10:24)
[2019-03-16] MEDS: Z GUARD REMEDY 4 OZ OINT TP SCH (10:24)
[2019-03-16 12:00] VITALS: BP 117/54
--- NOTE | 2019-03-16 13:14 | NUR ---
WOUND CARE CONSULT WOUND CARE RECEIVED CONSULT FOR REDNESS INNER BUTTOCKS AND BOTH HEELS. WOUND CARE WILL DEFER CONSULT AND TREATMENT PLANS TO PLASTIC SURGICAL TEAM WHO ARE CURRENTLY FOLLOWING THIS PATIENT. PATIENT WITH DIONE AT 14, ALL PRESSURE ULCER PREVENTION MEASURES ARE NOTED TO BE IN PLACE. WILL SEE PRN. `
[2019-03-16] MEDS: CLOTRIMAZOLE 1% 15 GM TUBE TP SCH ×2 (14:48→16:41)
[2019-03-16 16:00] VITALS: BP 101/50
[2019-03-16] MEDS: LACTOBACILLUS RHAMNOSUS GG 1 EACH CAP.SPRINK PO SCH (16:41)
--- NOTE | 2019-03-16 18:00 | NUR ---
RN NOTES INFORMED MD THAT PATIENT'S OUTPUT AT 300CC FOR THE ENTIRE SHIFT. OBTAINED ORDER FOR NS 1LITER BOLUS AND NS AT 80CC/HR. ORDER NOTED AND CARRIED OUT
[2019-03-16] MEDS ORDERED: IV NS 0.9% 1,000 ML IV ONE (18:30)
[2019-03-16] MEDS ORDERED: IV NS 0.9% 1,000 ML BAG IV PRN (18:30)
--- NOTE | 2019-03-16 19:11 | NUR ---
RN NOTES ENDORSED PATIENT FOR CONTINUITY OF CARE. NOT ON ANY FORM OF DISTRESS. NO ACUTE CHANGES WITHIN THE SHIFT. ALL NURSING NEEDS ATTENDED AND MET. SAFETY MEASURES IN PLACE AT ALL TIME
[2019-03-16] MEDS: IV NS 0.9% 1,000 ML IV PRN (19:56)
[2019-03-16 20:00] VITALS: BP 102/55
[2019-03-16] MEDS: ATORVASTATIN 40 MG TABLET PO SCH (20:43)
[2019-03-17] VITALS (8 sets, daily range): BP systolic 100–127; BP diastolic 55–70
[2019-03-17] MEDS: INSULIN REGULAR, HUMAN 100 UNIT/ML 3 ML VIAL SQ PRN ×4 (05:48→21:54)
[2019-03-17] MEDS: BLOOD SUGAR DIAGNOSTIC 1 EACH STRIP IN SCH ×2 (05:49→13:07)
[2019-03-17] MEDS: IV NS 0.9% 1,000 ML IV PRN (06:24)
[2019-03-17 07:19] LABS: BASOPHILS % (AUTO) 0.1 % (0.0-2.0); HEMATOCRIT 30 % (33-45); HEMOGLOBIN 9.9 g/dL (11.5-14.8); LYMPHOCYTES # (AUTO) 0.4 /CMM (0.8-4.8); MEAN CORPUSCULAR HGB CONC 33 g/dl (31.0-36.0); MEAN CORPUSCULAR VOLUME 91 fL (82-100); MONOCYTES # (AUTO) 0.5 /CMM (0.1-1.30); MONOCYTES % (AUTO) 3.5 % (2.0-12.0); NEUTROPHILS # (AUTO) 12.9 /CMM (1.8-8.9); NEUTROPHILS % (AUTO) 93.4 % (43.0-81.0); PLATELET COUNT (AUTO) 296 /CMM (150-450); RED BLOOD CELL COUNT(AUTO) 3.25 MIL/uL (4.0-5.2); WHITE BLOOD COUNT (AUTO) 13.8 K/uL (4.3-11.0)
[2019-03-17 07:35] LABS: CALCIUM, SERUM 7.8 mg/dL (8.5-10.1); CARBON DIOXIDE 20 mmol/L (21-32); CHLORIDE 107 mmol/L (98-107); CREATININE 1.8 mg/dL (0.6-1.3); GLUCOSE 197 mg/dL (74-106); MAGNESIUM 2.2 mg/dL (1.8-2.4); PHOSPHORUS 3.4 mg/dL (2.5-4.9); POTASSIUM 3.7 mmol/L (3.5-5.1); SODIUM SERUM 138 mmol/L (136-145)
[2019-03-17 07:38] LABS: UREA NITROGEN, BLOOD 99 mg/dL (7-18)
[2019-03-17] MEDS: MEROPENEM 500 MG in IV NS 0.9% 50 ML IV SCH ×2 (08:30→21:04)
[2019-03-17] MEDS: ASPIRIN EC 325 MG TABLET.DR PO SCH (08:31)
[2019-03-17] MEDS: LACTOBACILLUS RHAMNOSUS GG 1 EACH CAP.SPRINK PO SCH ×2 (08:31→17:11)
[2019-03-17] MEDS: methylPREDNISolone SOD SUCC 40 MG/ML VIAL IV SCH ×3 (08:31→17:11)
[2019-03-17] MEDS: CLOTRIMAZOLE 1% 15 GM TUBE TP SCH ×2 (08:39→17:11)
[2019-03-17] MEDS: Z GUARD REMEDY 4 OZ OINT TP SCH (08:39)
[2019-03-17] MEDS: CARVEDILOL 3.125 MG TABLET PO SCH ×2 (08:47→21:06)
[2019-03-17 13:06] LABS: PTH, INTACT 265 pg/mL (15-65)
[2019-03-17] MEDS ORDERED: VANCOMYCIN 500 MG in IV D5W 100 ML IV SCH ×4 (14:00)
[2019-03-17] MEDS ORDERED: DEXTROSE 50%-WATER 50 ML DISP.SYRIN IV PRN (15:00)
--- NOTE | 2019-03-17 15:00 | NUR ---
RN NOTE PT BLOOD GLUCOSE WAS HIGH AT 1300 BEFORE LUNCH =430 MG/DL, STAT LAB ORDERED 440 MG/DL, 10 UNIT PER SCALE GIVEN, DR PRESTON NOTIFIED. CHANGED SLIDING SCALE FOR MODERATE. LATER RECHECKED HER BLOOD SUGAR IS 499, CONTACTED AGAIN BUT NO RESPONSE.
[2019-03-17] MEDS: BLOOD SUGAR DIAGNOSTIC 1 EACH STRIP VI SCH ×2 (17:11→21:54)
[2019-03-17] MEDS: ACETAMINOPHEN 325 MG TABLET PO PRN (17:24)
[2019-03-17] MEDS ORDERED: IV NS 0.9% 1,000 ML IV PRN (18:00)
--- NOTE | 2019-03-17 18:03 | NUR ---
rn note spoke with dr Diaz, blood sugar is 427, protocol initiated, insulin 15 units per ss given and lab stat blood glucose draw ordered. pt had only 275 ml of urine output, per dr diaz to give bolus NS 1 L. will order and carry out.
--- NOTE | 2019-03-17 20:00 | NUR ---
rn notes patient in bed, awake, alert and responsive. verbally able to communicate needs. Noted with episodes of confusion and disorientation. In no apparent distress, breathing even and unlabored. On high flow mask O2 at 60ml, tolerating well. Kept clean and dry. will continue to monitor.
[2019-03-17] MEDS: ALBUTEROL FS 2.5 MG/3 ML VIAL.NEB NEB PRN (20:43)
[2019-03-17] MEDS: ATORVASTATIN 40 MG TABLET PO SCH (21:06)
[2019-03-18] VITALS (7 sets, daily range): BP systolic 114–149; BP diastolic 57–75
[2019-03-18] MEDS: ALBUTEROL FS 2.5 MG/3 ML VIAL.NEB NEB PRN (01:35)
[2019-03-18 02:35] LABS: ABG BASE EXCESS -5.2 mmol/L; ABG OXYGEN SATURATION 82.1 % (92.0-98.5); ABG PH 7.446 (7.350-7.450); ABG PO2 44.6 mmHg (75.0-100.0); AaDO2 642.4 mmHg; COHb 0.3 % (0.5-1.5); MetHb 0.5 % (0.0-1.5); O2Hb 81.4 % (94.0-97.0); SITE, ABG Right Brachial; VENT MODE, BG HIGH FLOW
--- NOTE | 2019-03-18 02:45 | NUR ---
rn notes Patient noted with low O2 saturation 80%. Head of bed elevated. Reposition for comfort. Seen and evaluated by RT. Breathing treatment administered by RT. Heart rate flactuates to a low of 40's and up to 80's. NS bolus administered at the beginning of shift but output is only 250ml as of this time. No complaint of pain. NOted to be very confused as of this time. Called MD, spoke with Dr. Villeda and obtained order for xray and abg. Results called to MD and ordered to continue current treatment. Will continue to monitor.
[2019-03-18] MEDS: ACETAMINOPHEN 325 MG TABLET PO PRN ×2 (03:02→08:02)
[2019-03-18] MEDS: BLOOD SUGAR DIAGNOSTIC 1 EACH STRIP VI SCH ×4 (06:02→21:49)
[2019-03-18] MEDS: INSULIN REGULAR, HUMAN 100 UNIT/ML 3 ML VIAL SQ PRN ×2 (06:03→17:39)
[2019-03-18 07:20] LABS: BASOPHILS % (AUTO) 0.1 % (0.0-2.0); HEMATOCRIT 38 % (33-45); HEMOGLOBIN 12.3 g/dL (11.5-14.8); LYMPHOCYTES # (AUTO) 0.6 /CMM (0.8-4.8); LYMPHOCYTES % (AUTO) 2.7 % (20.0-44.0); MEAN CORPUSCULAR HGB CONC 33 g/dl (31.0-36.0); MEAN CORPUSCULAR VOLUME 92 fL (82-100); MONOCYTES # (AUTO) 0.9 /CMM (0.1-1.30); MONOCYTES % (AUTO) 4.4 % (2.0-12.0); NEUTROPHILS % (AUTO) 92.8 % (43.0-81.0); PLATELET COUNT (AUTO) 362 /CMM (150-450); RED BLOOD CELL COUNT(AUTO) 4.11 MIL/uL (4.0-5.2); WHITE BLOOD COUNT (AUTO) 20.6 K/uL (4.3-11.0)
--- NOTE | 2019-03-18 07:40 | NUR ---
BRASS INSTRUMENT REPAIR TECHNICIAN NOTE RT AT BEDSIDE,PER DR MOHAN CAMARGO TO PLACE BIPAP MACHINE
--- NOTE | 2019-03-18 07:45 | NUR ---
patient persistently desaturating on hi flow at 60%,shallow breathing, paged and discussed treatment abg,and code status.able to get order from beth rutledge,started on bipap.
--- NOTE | 2019-03-18 07:45 | NUR ---
RT Pt received on high flow nasal cannula with max settings, pt has low SpO2 80%-82%. Pt is awake and alert with shallow breathing. Placed pt on BiPAP with noted settings and SpO2 is currently 92%-94%, tolerating well at this time. Addendum: 03/18/19 at 0836 by CHARITO SMITH RT Amended: Links added.
[2019-03-18 07:48] LABS: CALCIUM, SERUM 8.5 mg/dL (8.5-10.1); CARBON DIOXIDE 18 mmol/L (21-32); CHLORIDE 110 mmol/L (98-107); CREATININE 1.6 mg/dL (0.6-1.3); GLUCOSE 87 mg/dL (74-106); MAGNESIUM 2.2 mg/dL (1.8-2.4); PHOSPHORUS 3.1 mg/dL (2.5-4.9); POTASSIUM 3.7 mmol/L (3.5-5.1); SODIUM SERUM 143 mmol/L (136-145)
--- NOTE | 2019-03-18 07:48 | NUR ---
sat improves to 90's.
[2019-03-18 07:49] LABS: UREA NITROGEN, BLOOD 89 mg/dL (7-18)
[2019-03-18] MEDS: MEROPENEM 500 MG in IV NS 0.9% 50 ML IV SCH ×2 (07:53→20:01)
[2019-03-18] MEDS: CARVEDILOL 3.125 MG TABLET PO SCH ×2 (08:07→21:36)
[2019-03-18] MEDS: methylPREDNISolone SOD SUCC 40 MG/ML VIAL IV SCH ×3 (08:07→16:29)
[2019-03-18] MEDS: ASPIRIN EC 325 MG TABLET.DR PO SCH (08:08)
[2019-03-18] MEDS: LACTOBACILLUS RHAMNOSUS GG 1 EACH CAP.SPRINK PO SCH ×2 (08:08→16:29)
[2019-03-18] MEDS: CLOTRIMAZOLE 1% 15 GM TUBE TP SCH ×2 (08:09→16:49)
[2019-03-18] MEDS: Z GUARD REMEDY 4 OZ OINT TP SCH (08:10)
--- NOTE | 2019-03-18 08:30 | NUR ---
CLINICAL LABORATORY MEDICAL DIRECTOR NOTE RECEIVED PATENT IN BED ,ON HIGH FLOWO2 60 L \100% , STILL O2AT 84%, ALERT ORIENTED WITH SOME CONFUSION , BY CHARGE NURSE CALLED TO DR PRESTON TO INFORM LOW SAT, RT AT BEDSIDE , WITH GAMBOA CATH TO GRAVITY WITH YELLOW COLOR URINE, ON TELE MONITOR SR HR 95 , RT HAND AND LT HAND HL INTACT , BED IN LOWEST AND LOCKED POSITION , PLAN OF CARE DISCUSSED WITH PATIENT , CALL LIGHT WITHIN REACH
[2019-03-18 09:01] LABS: LYMPHOCYTES % (MANUAL) 4 % (16-48); MONOCYTES % (MANUAL) 8 % (0-11.0); NEUTROPHILS % (MANUAL) 88 (42-76)
[2019-03-18 09:19] LABS: ABG BASE EXCESS -3.6 mmol/L; ABG OXYGEN SATURATION 94.7 % (92.0-98.5); ABG PCO2 31.1 mmHg (35.0-45.0); ABG PH 7.425 (7.350-7.450); ABG PO2 76.9 mmHg (75.0-100.0); COHb 0.3 % (0.5-1.5); MetHb 0.5 % (0.0-1.5); O2Hb 93.9 % (94.0-97.0); SITE, ABG Right Radial
--- NOTE | 2019-03-18 09:30 | NUR ---
RISK CONTROL ANALYST NOTE C\O HEADACHE ,TYLENOL PO GIVE , SAT ON BIPAP 94% AT THIS TIME,
--- NOTE | 2019-03-18 09:54 | NUR ---
RIPPLER NOTE ABG BY RT DONE, PATIENT NOT IN DISTRESS, WILL MONITOR CLOSELY
--- NOTE | 2019-03-18 10:19 | NUR ---
PATIENT REPEAT ABG IMPROVES CONTINUE BIPAP FOR NOW PER MD.
--- NOTE | 2019-03-18 11:51 | NUR ---
RT Pt taken off BiPAP for brief period of time and pt started complaining about headaches from high flow nasal cannula. Pt was unable to hold adequate saturation and was placed back on BiPAP. Addendum: 03/18/19 at 1152 by CHARITO SMITH RT Amended: Links added.
[2019-03-18] MEDS: VANCOMYCIN 0.75 GM in IV D5W 250 ML IV SCH (12:26)
--- NOTE | 2019-03-18 12:30 | NUR ---
ANGELINE RN NOTE DR PRESTON AT BEDSIDE AWARE THAT STILL C\O HEADACHE ORDERED NORCO ,AWARE THAT PATENT ALLERGIC TO CODEINE STIILL ORDERED TO GIVE , ALSO AWARE THAT ON CHEST X RAY RT AND LT SIDE PNA , ON BIPAP SETTING AT THIS TIME ,HOLD COVERAGE WITH INSULIN AT THIS TIME PATENT DID NOT EAT LUNCH ,WILL MONITOR
[2019-03-18] MEDS: HYDROCODONE/APAP 5/325MG 1 EACH TABLET PO PRN (12:40)
--- NOTE | 2019-03-18 13:00 | NUR ---
DP RN NOTE DR ORTA SEEN PATIENT, OK TO CONT BIPAP IN AM ,WILL F\U ,
--- NOTE | 2019-03-18 13:22 | NUR ---
ANGELINE RN NOTE US TECH AT BEDSIDE DOING DOPPLER STUDY BOTH LEGS
--- NOTE | 2019-03-18 14:53 | NUR ---
ANGELINE RN NOTE NEGATIVE KIA SHAUNNA STUDY , ALSO PER DR REYES SPACE SCIENCES DIRECTOR OK TO HAVE CLEAR LIQUID DIET , WITH ASPIRATION PRECAUTION WHILE ON BIPAP, DR REYES ORDERED ABG AND CHEST X RAY FOR TOMORROW
--- NOTE | 2019-03-18 17:13 | NUR ---
ATHLETIC TEAM PHYSICIAN NOTE UNABLE TO REMOVE SOFT RESTRAIN ,AT RISK FOR REMOVAL ALL LINES
--- NOTE | 2019-03-18 17:54 | NUR ---
TELE RNNOTE PER DR BARRETT ORDER DESK CLERK OK TO GIVE CLEAR LIQUID DIET , BIPAP MACHINE REMOVED, ATE 10% BUT STILL AT HIGH RISK ASPIRATION AND BECOME EASILY TO SAT 84% , PLACED BACK BIPAP ,WILL MONITOR CLOSELY ,
--- NOTE | 2019-03-18 18:19 | NUR ---
ANGELINE RN NOTE PER RT BIPAP SETTING 08/22 RATE10, FIO2 80%, SAT AT THIS TIME 94%, WILL MONITOR CLOSELY
--- NOTE | 2019-03-18 18:55 | NUR ---
ANGELINE RN NOTE PER RT BIPAP SETTING FIO2 50% PS 8 RATE 16
[2019-03-18] MEDS: ATORVASTATIN 40 MG TABLET PO SCH (21:36)
[2019-03-18] MEDS: *INSULIN REGULAR(HUMULIN R)HUM 100 UNIT/ML VIAL SQ PRN (22:35)
[2019-03-19] VITALS: BP 110/60
[2019-03-19 04:00] VITALS: BP 128/69
[2019-03-19 06:22] LABS: BASOPHILS # (AUTO) 0.1 /CMM (0.0-0.2); BASOPHILS % (AUTO) 0.8 % (0.0-2.0); EOSINOPHILS % (AUTO) 0.4 % (0.0-6.0); HEMATOCRIT 35 % (33-45); HEMOGLOBIN 11.4 g/dL (11.5-14.8); LYMPHOCYTES # (AUTO) 0.5 /CMM (0.8-4.8); LYMPHOCYTES % (AUTO) 3.9 % (20.0-44.0); MEAN CORPUSCULAR HGB CONC 32 g/dl (31.0-36.0); MEAN CORPUSCULAR VOLUME 92 fL (82-100); MONOCYTES # (AUTO) 0.6 /CMM (0.1-1.30); MONOCYTES % (AUTO) 4.4 % (2.0-12.0); NEUTROPHILS % (AUTO) 90.5 % (43.0-81.0); PLATELET COUNT (AUTO) 314 /CMM (150-450); RED BLOOD CELL COUNT(AUTO) 3.84 MIL/uL (4.0-5.2); WHITE BLOOD COUNT (AUTO) 13.3 K/uL (4.3-11.0)
[2019-03-19 07:03] LABS: CALCIUM, SERUM 8.1 mg/dL (8.5-10.1); CARBON DIOXIDE 18 mmol/L (21-32); CHLORIDE 105 mmol/L (98-107); CREATININE 1.5 mg/dL (0.6-1.3); MAGNESIUM 2.2 mg/dL (1.8-2.4); PHOSPHORUS 3.9 mg/dL (2.5-4.9); POTASSIUM 4.8 mmol/L (3.5-5.1); SODIUM SERUM 137 mmol/L (136-145)
[2019-03-19 07:07] LABS: UREA NITROGEN, BLOOD 85 mg/dL (7-18)
[2019-03-19 07:18] LABS: GLUCOSE 423 mg/dL (74-106)
--- NOTE | 2019-03-19 07:30 | NUR ---
SUPERINTENDENT RENTING MANAGING AM NOTE RECEIVED PATENT IN BED ,AO X2-3 WITH SOME CONFUSION, ON CONTINUOUS BI PAP /, 50%, O2 SAT AT 94% , SINUS RHYTHM HR 80 ON TELE MONITOR, DENIES PAIN, RT WRIST G 20 AND LFA G 22 FLUSHES WELL, BOTH SITES CLEAR. WITH GAMBOA CATH TO GRAVITY WITH YELLOW COLOR URINE, SEE NURSING FLOWSHEET FOR SKIN ISSUES. CLEAR LIQUID. BED IN LOWEST AND LOCKED POSITION , PLAN OF CARE DISCUSSED WITH PATIENT , BED LOW LOCKED. CALL LIGHT WITHIN REACH, WILL CONT TO MONITOR. ACCUCHECK DONE. BS 393 MG/DL. 15 UNITS HUM R PER SLIDING SCALE GIVEN.
[2019-03-19] MEDS: BLOOD SUGAR DIAGNOSTIC 1 EACH STRIP VI SCH ×4 (07:49→22:21)
[2019-03-19 08:00] VITALS: BP 120/80
[2019-03-19] MEDS: MEROPENEM 500 MG in IV NS 0.9% 50 ML IV SCH ×2 (08:00→20:41)
[2019-03-19] MEDS: INSULIN REGULAR, HUMAN 100 UNIT/ML 3 ML VIAL SQ PRN ×3 (08:02→17:36)
[2019-03-19 09:11] LABS: BAND % (MANUAL) 1 % (0.0-5.0); LYMPHOCYTES % (MANUAL) 3 % (16-48); METAMYELOCYTES % 1 % (0-0); MONOCYTES % (MANUAL) 7 % (0-11.0); NEUTROPHILS % (MANUAL) 88 (42-76)
--- NOTE | 2019-03-19 09:30 | NUR ---
ANGELINE RN NOTES DUE MEDS GIVEN.
[2019-03-19] MEDS: ASPIRIN EC 325 MG TABLET.DR PO SCH (09:34)
[2019-03-19] MEDS: LACTOBACILLUS RHAMNOSUS GG 1 EACH CAP.SPRINK PO SCH ×2 (09:34→17:10)
[2019-03-19] MEDS: CARVEDILOL 3.125 MG TABLET PO SCH ×2 (09:34→20:42)
[2019-03-19] MEDS: CLOTRIMAZOLE 1% 15 GM TUBE TP SCH ×2 (09:38→17:26)
[2019-03-19] MEDS: Z GUARD REMEDY 4 OZ OINT TP SCH (09:46)
[2019-03-19] MEDS ORDERED: INSULIN GLARGINE, 100 UNIT/ML CARTRIDGE SQ ONE (10:00)
[2019-03-19] MEDS: VANCOMYCIN 0.75 GM in IV D5W 250 ML IV SCH (10:08)
[2019-03-19] MEDS: HYDROCODONE/APAP 5/325MG 1 EACH TABLET PO PRN (10:10)
[2019-03-19] MEDS ORDERED: FUROSEMIDE 20 MG/2 ML VIAL IV ONE (10:30)
--- NOTE | 2019-03-19 11:39 | NUR ---
ANGELINE RN NOTES: ACCUCHECK DONE. BS 390 MG/DL. 15 UNITS HUM R PER SLIDING SCALE GIVEN.
[2019-03-19 12:00] VITALS: BP 125/79
[2019-03-19 15:07] LABS: *SPE A/G RATIO 0.6 (0.7-1.7); *SPE ALBUMIN 2.1 g/dL (2.9-4.4); *SPE ALPHA-1-GLOBULIN 0.5 g/dL (0.0-0.4); *SPE ALPHA-2-GLOBULIN 1.3 g/dL (0.4-1.0); *SPE BETA GLOBULIN 1.1 g/dL (0.7-1.3); *SPE GLOBULIN, TOTAL 3.5 g/dL (2.2-3.9); *SPE M-SPIKE Not Observed g/dL (Not Observed); *SPEGAMMA GLOBULIN 0.7 g/dL (0.4-1.8)
[2019-03-19 16:00] VITALS: BP 116/67
[2019-03-19] MEDS ORDERED: methylPREDNISolone SOD SUCC 40 MG/ML VIAL IV SCH (17:00)
[2019-03-19] MEDS: FUROSEMIDE 20 MG/2 ML VIAL IV SCH (17:10)
--- NOTE | 2019-03-19 17:10 | NUR ---
ANGELINE RN NOTES: ACCUCHECK DONE. BS 156 MG/DL. 2 UNITS HUM R PER SLIDING SCALE GIVEN.
--- NOTE | 2019-03-19 18:19 | NUR ---
ANGELINE RN CLOSING NOTES PATENT IN BED ,AO X2-3 WITH SOME CONFUSION, ON HI FLOW OXYGEN, 35 LPM/ 60% FIO2. O2 SAT AT 94% , SINUS RHYTHM HR 67 ON TELE MONITOR, DENIES PAIN, RT WRIST G 20 AND LFA G 22 FLUSHES WELL, BOTH SITES CLEAR. WITH GAMBOA CATH TO GRAVITY WITH YELLOW COLOR URINE, 600 ML OUTPUT. PUREED DIET. BED IN LOWEST AND LOCKED POSITION, BED LOW LOCKED. ALL NEEDS MET, TURNED AND REPOSITIONED Q 2HOURS. RESTRAINT RELEASED AND CHECKED FOR CIRCULATION EVERY 2 HOURS. PM CARE DONE. CALL LIGHT WITHIN REACH, WILL ENDORSE TO NEXT SHIFT FOR JOSE.
[2019-03-19 20:00] VITALS: BP 120/56
[2019-03-19] MEDS: ATORVASTATIN 40 MG TABLET PO SCH (22:20)
[2019-03-19] MEDS: *INSULIN REGULAR(HUMULIN R)HUM 100 UNIT/ML VIAL SQ PRN (22:22)
[2019-03-20] VITALS: BP 126/51
[2019-03-20 04:00] VITALS: BP 114/47
[2019-03-20 06:24] LABS: BASOPHILS % (AUTO) 0.3 % (0.0-2.0); EOSINOPHILS % (AUTO) 0.1 % (0.0-6.0); HEMATOCRIT 35 % (33-45); HEMOGLOBIN 11.5 g/dL (11.5-14.8); LYMPHOCYTES # (AUTO) 0.7 /CMM (0.8-4.8); LYMPHOCYTES % (AUTO) 3.9 % (20.0-44.0); MEAN CORPUSCULAR HGB CONC 33 g/dl (31.0-36.0); MEAN CORPUSCULAR VOLUME 91 fL (82-100); MONOCYTES # (AUTO) 1.1 /CMM (0.1-1.30); MONOCYTES % (AUTO) 6.3 % (2.0-12.0); NEUTROPHILS # (AUTO) 15.2 /CMM (1.8-8.9); NEUTROPHILS % (AUTO) 89.4 % (43.0-81.0); PLATELET COUNT (AUTO) 289 /CMM (150-450); RED BLOOD CELL COUNT(AUTO) 3.83 MIL/uL (4.0-5.2)
[2019-03-20 06:35] LABS: CALCIUM, SERUM 8.3 mg/dL (8.5-10.1); CARBON DIOXIDE 22 mmol/L (21-32); CHLORIDE 107 mmol/L (98-107); CREATININE 1.2 mg/dL (0.6-1.3); GLUCOSE 173 mg/dL (74-106); POTASSIUM 4.8 mmol/L (3.5-5.1); SODIUM SERUM 138 mmol/L (136-145); UREA NITROGEN, BLOOD 74 mg/dL (7-18)
[2019-03-20] MEDS: BLOOD SUGAR DIAGNOSTIC 1 EACH STRIP VI SCH ×4 (07:57→21:13)
[2019-03-20 08:00] VITALS: BP 137/69
--- NOTE | 2019-03-20 08:00 | NUR ---
TD/RN AM SHIFT INITIAL NOTES RECEIVED PT AWAKE IN BED, PT A/O X 1-2, CONFUSED. PT DENIES ANY SYMPTOMS OTHER THAN THE DISCOMFORT FROM THE HIGH-FLOW CANNULA. NO ACUTE RESPIRATORY DISTRESS OR CHANGE OF CONDITION. ON HIGH FLOW WITH 35L OF O2, 60%FIO2, SATURATING @ 97%, LUNG SOUNDS DIMINISHED. RESPIRATIONS EVEN & UNLABORED. ON TELE MONITORING, SINUS RHYTHM, HR 64. IV SITE FLUSHED, PATENT WITH NO S/S OF INFECTION, SL. BILATERAL SOFT RESTRAINTS IN PLACED, RELEASED TO CHECK FOR COMFORT AND CIRCULATION, THEN PLACED BACK. GAMBOA CATHETER INTACT WITH YELLOW URINE OUTPUT. SCHEDULED AM MEDS TO BE GIVEN. CL WITHIN REACHED AND SAFETY MAINTAINED. ON GOING MONITORING.
--- NOTE | 2019-03-20 08:30 | NUR ---
TELE1/RN OFF HIGH FLOW PT PLACED ON 4L O2 VIA N/C. ON GOING MONITORING.
[2019-03-20] MEDS: ASPIRIN EC 325 MG TABLET.DR PO SCH (09:15)
[2019-03-20] MEDS: FUROSEMIDE 20 MG/2 ML VIAL IV SCH ×2 (09:15→17:59)
[2019-03-20] MEDS: LACTOBACILLUS RHAMNOSUS GG 1 EACH CAP.SPRINK PO SCH ×2 (09:15→17:59)
[2019-03-20] MEDS: INSULIN GLARGINE, 100 UNIT/ML CARTRIDGE SQ SCH ×2 (09:20→21:19)
[2019-03-20] MEDS: INSULIN REGULAR, HUMAN 100 UNIT/ML 3 ML VIAL SQ PRN ×3 (09:24→17:59)
[2019-03-20] MEDS: MEROPENEM 500 MG in IV NS 0.9% 50 ML IV SCH ×2 (09:25→20:15)
[2019-03-20] MEDS: CLOTRIMAZOLE 1% 15 GM TUBE TP SCH ×2 (09:29→18:00)
[2019-03-20] MEDS: Z GUARD REMEDY 4 OZ OINT TP SCH (09:30)
[2019-03-20] MEDS: HYDROCODONE/APAP 5/325MG 1 EACH TABLET PO PRN (09:41)
[2019-03-20 12:00] VITALS: BP 113/60
--- NOTE | 2019-03-20 12:00 | NUR ---
TELE1/RN NOON ROUNDS NO CHANGE OF CONDITION. PT TOLERATING N/C. MONITORING CONTINUED.
[2019-03-20 16:00] VITALS: BP 133/69
--- NOTE | 2019-03-20 19:00 | NUR ---
TELE1/RN AM SHIFT END NOTES ALL NEEDS MET. PT TOLERATING 4L O2 VIA N/C. NO ACUTE CHANGE OF CONDITION. PT ENDORSED TO PM NURSE TO CONTINUE CARE. CL WITHIN REACHED, SOFT WRISTS RESTRAINTS IN PLACE AND SAFETY MAINTAINED.
--- NOTE | 2019-03-20 19:54 | NUR ---
MARINE PROPULSION TECHNICIAN OPENING NOTES RECEIVED REPORT FROM MARLEN COX. PATIENT A/A/O X1 W/ CONFUSION BUT ABLE TO MAKE NEEDS KNOWN & FOLLOW SIMPLE COMMANDS. BREATHING EVEN & UNLABORED, TOLERATING O2 @ 4LPM VIA NC. NO RESPIRATORY DISTRESS NOTED. ON TELE W/ SINUS RHYTHM, HR 70S. LEFT FOREARM IV #22 & RIGHT WRIST IV #20 INTACT & PATENT W/ DRESSING CDI, SALINE LOCKED. GAMBOA CATH DRAINING YELLOW URINE. DENIES ANY PAIN OR DISCOMFORT @ THIS TIME. SAFETY MEASURES IN PLACE W/ SIDERAILS UP & BED ALARM ON. WILL CONTINUE TO MONITOR.
[2019-03-20 20:00] VITALS: BP 135/66
[2019-03-20] MEDS: ATORVASTATIN 40 MG TABLET PO SCH (21:13)
[2019-03-20] MEDS: CARVEDILOL 3.125 MG TABLET PO SCH (21:13)
[2019-03-20] MEDS: *INSULIN REGULAR(HUMULIN R)HUM 100 UNIT/ML VIAL SQ PRN (21:20)
[2019-03-21] VITALS: BP 121/63
--- NOTE | 2019-03-21 03:30 | NUR ---
SEGMENT PRODUCER NOTES REPORT GIVEN TO VALERIO COX FOR JOSE.
[2019-03-21 04:00] VITALS: BP 124/59
--- NOTE | 2019-03-21 06:34 | NUR ---
DREDGE DECKHAND NOTES NO ACUTE CHANGES NOTED DURING THE SHIFT. NO RESPIRATORY DISTRESS NOTED. WILL ENDORSE TO THE AM NURSE FOR CONTINUITY OF CARE.
[2019-03-21 06:41] LABS: BASOPHILS % (AUTO) 0.2 % (0.0-2.0); EOSINOPHILS % (AUTO) 1.8 % (0.0-6.0); HEMATOCRIT 35 % (33-45); HEMOGLOBIN 11.7 g/dL (11.5-14.8); LYMPHOCYTES # (AUTO) 0.8 /CMM (0.8-4.8); LYMPHOCYTES % (AUTO) 4.8 % (20.0-44.0); MEAN CORPUSCULAR HGB CONC 34 g/dl (31.0-36.0); MEAN CORPUSCULAR VOLUME 90 fL (82-100); MONOCYTES % (AUTO) 5.9 % (2.0-12.0); NEUTROPHILS # (AUTO) 14.4 /CMM (1.8-8.9); NEUTROPHILS % (AUTO) 87.3 % (43.0-81.0); PLATELET COUNT (AUTO) 239 /CMM (150-450); RED BLOOD CELL COUNT(AUTO) 3.85 MIL/uL (4.0-5.2); WHITE BLOOD COUNT (AUTO) 16.5 K/uL (4.3-11.0)
[2019-03-21 06:51] LABS: CALCIUM, SERUM 8.1 mg/dL (8.5-10.1); CARBON DIOXIDE 22 mmol/L (21-32); CHLORIDE 104 mmol/L (98-107); CREATININE 1.2 mg/dL (0.6-1.3); GLUCOSE 269 mg/dL (74-106); POTASSIUM 4.4 mmol/L (3.5-5.1); SODIUM SERUM 136 mmol/L (136-145); UREA NITROGEN, BLOOD 70 mg/dL (7-18)
--- NOTE | 2019-03-21 07:22 | NUR ---
BRACE END MAINSPRING FORMER OPENING NOTES RECEIVED BEDSIDE REPORT PATIENT AWAKE IN BED A/O X1 NAME ONLY. CONTINUOUSLY ASKING FOR HELP BUT UNABLE TO TELL WHAT FOR. NO SIGNS OR SYMPTOMS OF RESPIRATORY DISTRESS ON 4 LTRS NASAL CANNULA OR ACUTE PAIN NOTED.SINUS ON THE MONITOR 70'S . GAMBOA CATH DRAINING CLEAR YELLOW URINE. BILATERAL WRIST RESTRAINTS APPLIED CHECKED FOR CIRCULATION RENEWAL @ 1300. IV JORDON # 22 SALINE LOCK. SAFETY AND ASPIRATION PRECAUTIONS IN PLACE BED IN LOW POSITION CALL LIGHT WITHIN REACH WILL CONT TO MONITOR ACCORDINGLY.
[2019-03-21] MEDS: BLOOD SUGAR DIAGNOSTIC 1 EACH STRIP VI SCH ×4 (07:52→21:27)
[2019-03-21] MEDS: INSULIN REGULAR, HUMAN 100 UNIT/ML 3 ML VIAL SQ PRN ×3 (07:53→17:16)
[2019-03-21] MEDS: MEROPENEM 500 MG in IV NS 0.9% 50 ML IV SCH ×2 (07:55→19:36)
[2019-03-21 08:00] VITALS: BP 140/64
[2019-03-21] MEDS: LACTOBACILLUS RHAMNOSUS GG 1 EACH CAP.SPRINK PO SCH ×2 (08:39→17:15)
[2019-03-21] MEDS: ASPIRIN EC 325 MG TABLET.DR PO SCH (08:39)
[2019-03-21] MEDS: FUROSEMIDE 20 MG/2 ML VIAL IV SCH (08:39)
[2019-03-21] MEDS: CARVEDILOL 3.125 MG TABLET PO SCH (08:39)
[2019-03-21] MEDS: HYDROCODONE/APAP 5/325MG 1 EACH TABLET PO PRN (08:40)
[2019-03-21] MEDS ORDERED: CARVEDILOL 3.125 MG TABLET PO SCH (09:00)
[2019-03-21 09:14] LABS: LYMPHOCYTES % (MANUAL) 2 % (16-48); MONOCYTES % (MANUAL) 7 % (0-11.0); NEUTROPHILS % (MANUAL) 91 (42-76)
[2019-03-21] MEDS: CLOTRIMAZOLE 1% 15 GM TUBE TP SCH ×2 (09:50→17:16)
[2019-03-21] MEDS: Z GUARD REMEDY 2 OZ OINT TP SCH (09:50)
[2019-03-21] MEDS: CARVEDILOL 12.5 MG TABLET PO SCH ×2 (09:56→21:26)
[2019-03-21] MEDS: LISINOPRIL (10MG) 10 MG TABLET PO SCH (09:56)
--- NOTE | 2019-03-21 11:50 | NUR ---
MIDLINE PLACE IN RIGHT BACILLUS # 18 GAUGE
[2019-03-21] MEDS: FUROSEMIDE 100 MG/10 ML VIAL IV SCH ×3 (11:52→17:16)
[2019-03-21 12:00] VITALS: BP 122/60
[2019-03-21 16:00] VITALS: BP 123/63
--- NOTE | 2019-03-21 18:54 | NUR ---
CEMENTING BULK MATERIAL OPERATOR OPENING NOTES RECEIVED BEDSIDE REPORT PATIENT AWAKE IN BED A/O X1 NAME ONLY. CONTINUOUSLY ASKING FOR HELP BUT UNABLE TO TELL WHAT FOR. NO SIGNS OR SYMPTOMS OF RESPIRATORY DISTRESS ON 4 LTRS NASAL CANNULA OR ACUTE PAIN NOTED.SINUS ON THE MONITOR 70'S . GAMBOA CATH DRAINING CLEAR YELLOW URINE. BILATERAL WRIST RESTRAINTS APPLIED CHECKED FOR CIRCULATION RENEWAL @ 1300. ERICKA MIDLINE # 18 GAUGE SALINE LOCK. SAFETY AND ASPIRATION PRECAUTIONS IN PLACE BED IN LOW POSITION CALL LIGHT WITHIN REACH WILL CONT TO MONITOR ACCORDINGLY.
--- NOTE | 2019-03-21 18:58 | NUR ---
ENDORSED TO NOC
--- NOTE | 2019-03-21 19:17 | NUR ---
RN/TELE ENTRY NOTES PATIENT RECEIVED IN BED, RESTING COMFORTABLY AT THIS TIME. NO S/S OF ACUTE DISTRESS NOTED. RESPIRATION EVEN AND UNLABORED. NO SOB NOTED. PATIENT A/O X1 WITH CONFUSION AND DISORIENTATION D/T DEMENTIA. NO S/S OF PAIN NOTED AT THIS TIME. PATIENT ON TELE MONITORING WITH S/R AT THIS TIME. F/C IN PLACE, PATENT, DRAINING WELL WITH CLEAR, YELLOW URINE. BILATERAL WRIST RESTRAINTS IN PLACE, WILL CONTINUE TO MONITOR CIRCULATION AND SITES FOR ANY CHANGES. ERICKA MIDLINE # [address], NO S/S OF INFECTION NOTED AT THE SITE. SAFETY MAINTAINED, HOB KEPT ELEVATED. BED IN LOW POSITION, LOCKED, CALL LIGHT WITHIN REACH WILL CONT TO MONITOR PATIENT PER PLAN OF CARE.
[2019-03-21 20:00] VITALS: BP 123/66
[2019-03-21] MEDS: ATORVASTATIN 40 MG TABLET PO SCH (21:27)
[2019-03-21] MEDS: *INSULIN REGULAR(HUMULIN R)HUM 100 UNIT/ML VIAL SQ PRN (21:31)
[2019-03-21] MEDS: INSULIN GLARGINE, 100 UNIT/ML CARTRIDGE SQ SCH (21:32)
[2019-03-22] VITALS: BP 117/64
[2019-03-22 04:00] VITALS: BP 120/68
--- NOTE | 2019-03-22 06:52 | NUR ---
RN/TELE EXIT NOTES PATIENT REMAINED IN BED, RESTING COMFORTABLY AT THIS TIME. NO S/S OF ACUTE DISTRESS NOTED. RESPIRATION EVEN AND UNLABORED. NO SOB NOTED. NO S/S OF PAIN NOTED AT THIS TIME. PATIENT ON TELE MONITORING WITH S/R. F/C IN PLACE, PATENT, DRAINING WELL WITH CLEAR, YELLOW URINE, WITH OUTPUT OF 1950. BILATERAL WRIST RESTRAINTS IN PLACE. ERICKA MIDLINE # [address] G[address]OCK IN PLACE, NO S/S OF INFECTION NOTED AT THE SITE. SAFETY MAINTAINED, HOB KEPT ELEVATED. BED IN LOW POSITION, LOCKED, CALL LIGHT WITHIN REACH, WILL ENDORSE TO AM SHIFT NURSE FOR JOSE.
--- NOTE | 2019-03-22 07:30 | NUR ---
SYSTEMS ENGINEERING MANAGER AM NOTE RECEIVED PATENT IN BED ,AO X2-3 WITH SOME CONFUSION, ON 4L O2 NASAL CANULA. O2 SAT AT 96% , BREATHING UNLABORED, NO SOB, SINUS RHYTHM HR 73 ON TELE MONITOR, DENIES PAIN, ERICKA MIDLINE G 18 FLUSHES WELL, SITE CLEAR. WITH GAMBOA CATH TO GRAVITY WITH YELLOW COLOR URINE, SEE NURSING FLOWSHEET FOR SKIN ISSUES. CCHO PUREED DIET. BED IN LOWEST AND LOCKED POSITION, ON BILAT SOFT RESTRAINT, CHECKED FOR CIRCULATION, GOOD PULSES. PLAN OF CARE DISCUSSED WITH PATIENT , BED LOW LOCKED. CALL LIGHT WITHIN REACH, WILL CONT TO MONITOR.
[2019-03-22] MEDS: BLOOD SUGAR DIAGNOSTIC 1 EACH STRIP VI SCH ×4 (07:45→21:10)
[2019-03-22 07:46] LABS: BASOPHILS # (AUTO) 0.1 /CMM (0.0-0.2); BASOPHILS % (AUTO) 0.4 % (0.0-2.0); EOSINOPHILS % (AUTO) 2.9 % (0.0-6.0); HEMATOCRIT 39 % (33-45); HEMOGLOBIN 13.1 g/dL (11.5-14.8); LYMPHOCYTES # (AUTO) 1.6 /CMM (0.8-4.8); LYMPHOCYTES % (AUTO) 8.1 % (20.0-44.0); MEAN CORPUSCULAR HGB CONC 33 g/dl (31.0-36.0); MEAN CORPUSCULAR VOLUME 90 fL (82-100); MONOCYTES # (AUTO) 1.3 /CMM (0.1-1.30); MONOCYTES % (AUTO) 6.8 % (2.0-12.0); NEUTROPHILS # (AUTO) 16.1 /CMM (1.8-8.9); NEUTROPHILS % (AUTO) 81.8 % (43.0-81.0); PLATELET COUNT (AUTO) 257 /CMM (150-450); RED BLOOD CELL COUNT(AUTO) 4.35 MIL/uL (4.0-5.2); WHITE BLOOD COUNT (AUTO) 19.7 K/uL (4.3-11.0)
[2019-03-22] MEDS: MEROPENEM 500 MG in IV NS 0.9% 50 ML IV SCH (07:46)
--- NOTE | 2019-03-22 07:53 | NUR ---
SCARFER OPERATOR NOTES ACCUCHECK DONE. BS 140 MG/DL. 2 UNITS HUM R PER SLIDING SCALE GIVEN.
[2019-03-22 07:58] LABS: ALANINE AMINOTRANSFERASE 11 U/L (12-78); ALBUMIN 1.6 g/dL (3.4-5.0); ALKALINE PHOSPHATASE 77 U/L (46-116); ASPARTATE AMINOTRANSFERASE 22 U/L (15-37); BILIRUBIN,TOTAL 0.7 mg/dL (0.2-1.0); CALCIUM, SERUM 8.6 mg/dL (8.5-10.1); CARBON DIOXIDE 28 mmol/L (21-32); CHLORIDE 103 mmol/L (98-107); CREATININE 1.2 mg/dL (0.6-1.3); GLUCOSE 149 mg/dL (74-106); MAGNESIUM 1.5 mg/dL (1.8-2.4); PHOSPHORUS 4.3 mg/dL (2.5-4.9); POTASSIUM 4.4 mmol/L (3.5-5.1); SODIUM SERUM 140 mmol/L (136-145); TOTAL PROTEIN, SERUM 5.3 g/dL (6.4-8.2); UREA NITROGEN, BLOOD 63 mg/dL (7-18)
[2019-03-22 08:00] VITALS: BP 124/60
[2019-03-22 08:07] LABS: BAND % (MANUAL) 2 % (0.0-5.0); EOSINOPHILS % (MANUAL) 3 % (0-4); LYMPHOCYTES % (MANUAL) 10 % (16-48); MONOCYTES % (MANUAL) 7 % (0-11.0); NEUTROPHILS % (MANUAL) 78 (42-76)
[2019-03-22] MEDS: INSULIN REGULAR, HUMAN 100 UNIT/ML 3 ML VIAL SQ PRN ×3 (08:35→17:08)
[2019-03-22] MEDS: LACTOBACILLUS RHAMNOSUS GG 1 EACH CAP.SPRINK PO SCH ×2 (08:36→17:11)
[2019-03-22] MEDS: ASPIRIN EC 325 MG TABLET.DR PO SCH (08:36)
[2019-03-22] MEDS: LISINOPRIL (10MG) 10 MG TABLET PO SCH (08:37)
[2019-03-22] MEDS: CARVEDILOL 12.5 MG TABLET PO SCH ×2 (08:37→20:56)
[2019-03-22] MEDS: Z GUARD REMEDY 2 OZ OINT TP SCH (08:42)
[2019-03-22] MEDS: CLOTRIMAZOLE 1% 15 GM TUBE TP SCH ×2 (08:45→17:15)
--- NOTE | 2019-03-22 10:43 | NUR ---
PHOTOENGRAVING PRINTER NOTES PER DR. LEE DC RESTRAINT FOR 24 HOURS FOR POSSIBLE DC TO SNF TOMORROW. 1:1 SITTER
[2019-03-22] MEDS: Magnesium 1GM/D5W 100ML PREMIX 100 ML IV SCH ×3 (11:29→13:43)
[2019-03-22] MEDS: FUROSEMIDE 40 MG TABLET PO SCH (11:29)
[2019-03-22] MEDS: POTASSIUM CHLORIDE 20 MEQ TAB.PRT.SR PO SCH (11:30)
--- NOTE | 2019-03-22 11:42 | NUR ---
PEDIATRIC SOCIAL WORKER NOTES ACCUCHECK DONE. BS 173 MG/DL. 3 UNITS HUM R PER SLIDING SCALE GIVEN.
[2019-03-22 12:00] VITALS: BP 111/60
[2019-03-22] MEDS: CLOPIDOGREL BISULFATE 75 MG TABLET PO SCH (12:53)
[2019-03-22 16:00] VITALS: BP 114/60
--- NOTE | 2019-03-22 17:05 | NUR ---
GAS GOLF CART REPAIRER NOTES ACCUCHECK DONE. BS 189 MG/DL. 3 UNITS HUM R PER SLIDING SCALE GIVEN.
--- NOTE | 2019-03-22 18:46 | NUR ---
COMPUTER REPAIR ENGINEER CLOSING NOTES PATIENT RESTING COMFORTABLY. NOT IN ANY DISTRESS. SITTER AT BEDSIDE. ALL NEEDS MET AT THIS TIME. NO OTHER SIGNIFICANT CHANGE IN CONDITION. SAFETY MEASURES IN PLACE. WILL ENDORSE TO NEXT SHIFT FOR JOSE.
--- NOTE | 2019-03-22 19:07 | NUR ---
RN/TELE ENTRY NOTES PATIENT RECEIVED IN BED, RESTING COMFORTABLY AT THIS TIME. NO S/S OF ACUTE DISTRESS NOTED. RESPIRATION EVEN AND UNLABORED. NO SOB NOTED. PATIENT A/O X1 WITH CONFUSION AND DISORIENTATION D/T DEMENTIA. NO S/S OF PAIN NOTED AT THIS TIME. PATIENT ON TELE MONITORING WITH S/R AT THIS TIME. F/C IN PLACE, PATENT, DRAINING WELL WITH CLEAR, YELLOW URINE. ERICKA MIDLINE # [address], NO S/S OF INFECTION NOTED AT THE SITE. SAFETY MAINTAINED, HOB KEPT ELEVATED. BED IN LOW POSITION, LOCKED, CALL LIGHT WITHIN REACH WILL CONT TO MONITOR PATIENT PER PLAN OF CARE.
[2019-03-22 20:00] VITALS: BP 122/64
[2019-03-22] MEDS: ATORVASTATIN 40 MG TABLET PO SCH (21:09)
[2019-03-22] MEDS: INSULIN GLARGINE, 100 UNIT/ML CARTRIDGE SQ SCH (21:14)
[2019-03-22] MEDS: *INSULIN REGULAR(HUMULIN R)HUM 100 UNIT/ML VIAL SQ PRN (21:16)
[2019-03-23] VITALS: BP 107/53
[2019-03-23 04:00] VITALS: BP 128/67
--- NOTE | 2019-03-23 06:33 | NUR ---
RN/TELE EXIT NOTES PATIENT REMAINED IN BED, IN COMFORTABLE CONDITION. NO S/S OF ACUTE DISTRESS NOTED, RESPIRATION EVEN AND UNLABORED. NO SOB NOTED. NO S/S OF PAIN NOTED AT THIS TIME. PATIENT ON TELE MONITORING WITH S/R AT 63 AT THIS TIME. F/C IN PLACE, PATENT, DRAINING WELL WITH CLEAR, YELLOW URINE WITH OUTPUT OF 1050. ERICKA MIDLINE # [address], NO S/S OF INFECTION NOTED AT THE SITE. SAFETY MAINTAINED, HOB KEPT ELEVATED. BED IN LOW POSITION, LOCKED, CALL LIGHT WITHIN REACH, SITTER AT THE BED SIDE. WILL ENDORSE AM SHIFT NURSE FOR JOSE
--- NOTE | 2019-03-23 07:00 | NUR ---
BLOCK MACHINE OPERATOR OPENING NOTES RECEIVED PT LYING ON BED.ALERT/ORIENTED X1 WITH CONFUSION.ON TELE HR IS 67 WITH SR.1:1 SITTER IS AT BEDSIDE.NO SOB AND ACUTE DISTRESS NOTED ON NC 4L.GAMBOA CATH IS PRESENT WITH CLEAR YELLOW URINE,INTACT.RIGHT UA MIDLINE WITH 18 G,SITE IS CLEAN DRY AND INTACT.BED IS IN ,LOW POSITION AND LOCKED,CALL LIGHT IS WITHIN REACH.WILL CONTINUE TO MONITOR THE PT CLOSELY.
[2019-03-23 07:20] LABS: BASOPHILS % (AUTO) 0.2 % (0.0-2.0); EOSINOPHILS % (AUTO) 2.9 % (0.0-6.0); HEMATOCRIT 34 % (33-45); HEMOGLOBIN 11.3 g/dL (11.5-14.8); LYMPHOCYTES % (AUTO) 11.7 % (20.0-44.0); MEAN CORPUSCULAR HGB CONC 34 g/dl (31.0-36.0); MEAN CORPUSCULAR VOLUME 90 fL (82-100); MONOCYTES # (AUTO) 1.2 /CMM (0.1-1.30); MONOCYTES % (AUTO) 7.3 % (2.0-12.0); NEUTROPHILS # (AUTO) 13.1 /CMM (1.8-8.9); NEUTROPHILS % (AUTO) 77.9 % (43.0-81.0); PLATELET COUNT (AUTO) 243 /CMM (150-450); RED BLOOD CELL COUNT(AUTO) 3.77 MIL/uL (4.0-5.2); WHITE BLOOD COUNT (AUTO) 16.8 K/uL (4.3-11.0)
[2019-03-23 07:21] LABS: CALCIUM, SERUM 7.8 mg/dL (8.5-10.1); CARBON DIOXIDE 28 mmol/L (21-32); CHLORIDE 100 mmol/L (98-107); CREATININE 1.2 mg/dL (0.6-1.3); GLUCOSE 142 mg/dL (74-106); MAGNESIUM 2.3 mg/dL (1.8-2.4); POTASSIUM 4.1 mmol/L (3.5-5.1); SODIUM SERUM 134 mmol/L (136-145); UREA NITROGEN, BLOOD 57 mg/dL (7-18)
[2019-03-23] MEDS: BLOOD SUGAR DIAGNOSTIC 1 EACH STRIP VI SCH ×2 (07:30→12:18)
[2019-03-23 08:00] VITALS: BP 103/51
[2019-03-23] MEDS: CLOPIDOGREL BISULFATE 75 MG TABLET PO SCH (08:18)
[2019-03-23] MEDS: FUROSEMIDE 40 MG TABLET PO SCH (08:18)
[2019-03-23] MEDS: LACTOBACILLUS RHAMNOSUS GG 1 EACH CAP.SPRINK PO SCH (08:18)
[2019-03-23] MEDS: POTASSIUM CHLORIDE 20 MEQ TAB.PRT.SR PO SCH (08:18)
[2019-03-23] MEDS: CARVEDILOL 12.5 MG TABLET PO SCH (08:19)
[2019-03-23] MEDS: LISINOPRIL (10MG) 10 MG TABLET PO SCH (08:19)
[2019-03-23] MEDS: CLOTRIMAZOLE 1% 15 GM TUBE TP SCH (08:19)
[2019-03-23] MEDS: Z GUARD REMEDY 2 OZ OINT TP SCH (08:20)
[2019-03-23 08:37] LABS: B-TYPE NATRIURETIC PEPTIDE 16270 PG/ML (0-125)
[2019-03-23] MEDS ORDERED: ASPIRIN 81 MG TAB.CHEW PO SCH (09:00)
[2019-03-23] MEDS ORDERED: CLOP75TA15 PO (10:06)
[2019-03-23] MEDS ORDERED: CARV12.52 PO (10:06)
[2019-03-23] MEDS ORDERED: LISI10TA59 PO (10:06)
[2019-03-23] MEDS ORDERED: POTA20TA83 PO (10:06)
[2019-03-23] MEDS ORDERED: ASPI-1169 PO (10:06)
[2019-03-23] MEDS ORDERED: FURO40TA5 PO (10:06)
[2019-03-23] MEDS ORDERED: ATOR40TA PO (10:06)
[2019-03-23 12:00] VITALS: BP 110/60
[2019-03-23] MEDS: INSULIN REGULAR, HUMAN 100 UNIT/ML 3 ML VIAL SQ PRN (12:19)
--- NOTE | 2019-03-23 15:00 | NUR ---
PLATE PRINTER NOTES PT JOSE AND DISCHARGE REPORT GIVEN TO KENNY WOODARD IN [facility].
--- NOTE | 2019-03-23 15:55 | NUR ---
EMS MANAGERBREAST SPLITTER NOTES PT IS DISCHARGED TO [facility].REPORT GIVEN TO KENNY RAMÍREZ IN SNF.PT IS CLEAN AND DRY AND WOUND TREATMENT ID DONE.MIDLINE REMOVED FROM RIGHT UA,NO BLEEDING NOTED.PT IS ON ROOM AIR SATURATING ON 96%.GAMBOA CATH IS IN PLACE SACRAL REDNESS PRESENT.ALL THE DISCHARGE MEDICATIONS AND BELONGINGS GIVEN.SKIN ASSESSMENT IS DONE AND PICTURE HAS TAKEN.DISCHARGED TO SNF WITH AMBULANCE,NO COMPLICATIONS NOTED.
== END 2019-03-23 18:17 | DRG 280 ==
LOC: ER 01:39 → TELE-TD 04:44 → TELE1 03-17 10:14 → TELE-TD 03-18 07:29 → TELE1 03-20 10:32
PROVIDERS: ATTEND Internal Medicine
PROC: 5A09357 Assistance with Respiratory Ventilation, Less than 24 Consecutive Hours, Continuous Positive Airway Pressure (ICD-10-PCS; 2019-03-15)
PROC: 05H533Z Insertion of Infusion Device into Right Subclavian Vein, Percutaneous Approach (ICD-10-PCS; principal; 2019-03-21)
PROC: B546ZZA Ultrasonography of Right Subclavian Vein, Guidance (ICD-10-PCS; 2019-03-21)
DX: I21.4 Non-ST elevation (NSTEMI) myocardial infarction (principal); N17.0 Acute kidney failure with tubular necrosis; J96.01 Acute respiratory failure with hypoxia; E43 Unspecified severe protein-calorie malnutrition; I50.31 Acute diastolic (congestive) heart failure; N39.0 Urinary tract infection, site not specified; G93.40 Encephalopathy, unspecified; I13.0 Hypertensive heart and chronic kidney disease with heart failure and stage 1 through stage 4 chronic kidney disease, or unspecified chronic kidney disease; E11.22 Type 2 diabetes mellitus with diabetic chronic kidney disease; I48.91 Unspecified atrial fibrillation; F09 Unspecified mental disorder due to known physiological condition; I25.10 Atherosclerotic heart disease of native coronary artery without angina pectoris; K21.9 Gastro-esophageal reflux disease without esophagitis; L30.4 Erythema intertrigo; Z66 Do not resuscitate; Z88.1 Allergy status to other antibiotic agents; Z79.4 Long term (current) use of insulin; I27.20 Pulmonary hypertension, unspecified; F03.90 Unspecified dementia, unspecified severity, without behavioral disturbance, psychotic disturbance, mood disturbance, and anxiety; N18.9 Chronic kidney disease, unspecified; E88.09 Other disorders of plasma-protein metabolism, not elsewhere classified; Z68.24 Body mass index [BMI] 24.0-24.9, adult; E11.65 Type 2 diabetes mellitus with hyperglycemia; L98.8 Other specified disorders of the skin and subcutaneous tissue
CPT/HCPCS: 36415; 36569; 36600; 71045-TC; 76770-TC; 80048-TC; 80053-TC; 80061-TC; 80076-TC; 80202-TC; 81000-TC; 82272-TC; 82550-TC; 82570-TC; 82728-TC; 82803-TC; 82947-TC; 82962-TC; 83540-TC; 83605-TC; 83735-TC; 83880; 83970; 84100-TC; 84155; 84155-TC; 84165; 84300-TC; 84443-TC; 84484-TC; 85025-TC; 85610-TC; 85730-TC; 87040-TC; 87081-TC; 87086-TC; 92526; 92611-TC; 93307-TC; 93970-TC; 94660; 94760-TC; 94762-TC; 94799-TC; 97112-TC; 97530-TC; A4216; G0378; J1644; J1815; J1940; J2185; J2543; J2920; J3370; J3475; J3490; J7030; J7060